=== PATIENT | female | born 1995 | race Hispanic/Latino ===

== ENCOUNTER 2020-02-23 08:06 | Outpatient (CLI) | payer OTHER, SELFPAY ==
[2020-02-23 09:48] LABS: Glucose 1 Hour PP 50gm Dose 104 mg/dL
[2020-02-23 09:50] LABS: Hematocrit 33.8 % (37.0-47.0); Hemoglobin 11.2 g/dL (12.0-15.0)
[2020-02-23 10:30] LABS: HIV 1/2 Ab P24 Ag Result Negative (Negative)
== END 2020-02-23 08:07 | disposition home or self-care (01) ==
PROVIDERS: PCP Family Medicine; Visit Provider Obstetrics & Gynecology
DX: Z34.92 Encounter for supervision of normal pregnancy, unspecified, second trimester (principal)
CPT/HCPCS: 36415; 82947; 85014; 85018; 86703; G0432

== ENCOUNTER 2020-05-02 10:17 | Outpatient (CLI) | payer OTHER, SELFPAY ==
--- NOTE | 2020-05-02 11:29 | PC.NURSE ---
Dr. Chowdary returned call to office and informed ROM plus was negative, FHT's reactive. Discussed contractions that pt feels as mild cramping and rates a 2 out of 10. Tried to do SVE, but unable to reach cervix. Fetus is vertex and -1 station. Tried reaching behind head and sweeping finger to find cervix, but unable to reach due to pt discomfort. No leakage of fluid or vaginal spotting noted. OK to discharge to home. To have pt come back if contractions increase in intensity or any leakage of fluid.
[2020-05-02 11:31] VITALS: BP 105/67; PULSE 85
--- NOTE | 2020-05-02 11:39 | PC.NURSE ---
Called Dr. Chowdary back and informed him pt had a late decel followed by an accel and moderate variability. To watch pt for another 30 minutes and if tracing is OK, may discharge to home with labor precautions. OK for pt to have clear liquids.
--- NOTE | 2020-05-02 12:01 | PM.OBTRLD ---
OB - Triage/Final Diagnosis Visit Information Reason for evaluation: threatened labor Evaluation Vital signs: Vital Signs - 24 hr 05/02/20 11:31 Pulse Rate 85 Blood Pressure [Left Arm] 105/67
== END 2020-05-02 12:30 | disposition home or self-care (01) ==
LOC: ANHOBOP 11:37 → ANHOBPP 11:38
PROVIDERS: PCP Family Medicine; Visit Provider Obstetrics & Gynecology
DX: O41.8X90 Other specified disorders of amniotic fluid and membranes, unspecified trimester, not applicable or unspecified (principal)
CPT/HCPCS: 59025; 84112; 99199

== ENCOUNTER 2020-05-05 10:06 | Outpatient (CLI) | payer OTHER, SELFPAY ==
[2020-05-05 10:22] LABS: Hematocrit 40.1 % (37.0-47.0); Hemoglobin 13.3 g/dL (12.0-15.0); Mean Corpuscular HGB Conc 33.2 g/dl (32-36); Mean Corpuscular Hemoglobin 29.4 pg (26-34); Mean Corpuscular Volume 88.5 fl (80-100); Platelet Count Result 206 k/mm3 (150-375); Red Blood Count 4.53 M/mm3 (4.2-5.4); Red Cell Distribution Width 13.8 % (11.5-14.5); White Blood Count 9.7 K/mm3 (4.5-10.0)
[2020-05-07 07:07] LABS: Rapid Plasma Reagin Non-Reactive (NonReactive)
== END 2020-05-05 10:07 | disposition home or self-care (01) ==
LOC: ANHLAB 10:08
PROVIDERS: PCP Family Medicine; Visit Provider Obstetrics & Gynecology
DX: Z01.818 Encounter for other preprocedural examination (principal)
CPT/HCPCS: 36415; 85027; 86592; 86850; 86900; 86901

== ENCOUNTER 2020-05-07 05:03 | Inpatient (IN) | payer OTHER, MEDICAID, SELFPAY ==
--- NOTE | 2020-04-20 12:59 | PC.NURSE ---
VERIFIED WITH OR SCHEDULE AND PATIENT--C/S ON 05/07/20 AT 0730 PATIENT GIVEN REQUISITION FOR LAB DRAW ON 05/05/20
[2020-05-07] VITALS (72 sets, daily range): BP systolic 90–123; BP diastolic 51–79; PULSE 60–158; RESP 16; TEMP 36.1–37.8; O2SAT 97–100; BMI 28.9
[2020-05-07] MEDS: LACTATED RINGERS 1,000 ML 125 ML IV CONT ×2 (05:52→07:00)
--- NOTE | 2020-05-07 06:17 | LDADM ---
This patient, Bessy Orlando, was admitted to Labor/Delivery/Recovery 120 on 05/07/20 at 05:03. Plans for labor, pain management and were discussed with patient. Patient/family oriented to hospital policies and general routines including ID bracelet, bed and alarms, visiting hours, pain management, procedures, bathroom and other care routines, personal items, smoking policy, room service/diet and guest tray routines, security routines, and visiting hours. Patient/Family are encouraged to report perceived risks to care and to ask questions if they do not understand what they are told or what they should do. See OBIX for further documentation.
--- NOTE | 2020-05-07 07:09 | WPDANESEPPF ---
Anes - Initial Pre Proc Eval Procedure: Operation Date: 05/07/20 07:30 Proposed Procedures p Primary Section - Milagro Heredia MD Date/Time: 05/07/20 07:09 Surgeon: Milagro Heredia MD Pre Op Diagnosis: Patient Data Age: 25 Gender: F Height: 5 ft 3 in Weight: 74 kg Last Vital Signs Pulse 83 05/07/20 06:31 BP 108/65 05/07/20 06:31 Allergies Allergy/AdvReac Type Severity Reaction Status Date / Time No Known Allergies Allergy Mild Verified 04/20/20 12:38 Home Medications Medication Instructions Recorded Confirmed Type PNV cmb#95-ferrous fumarate-FA 1 tablet PO DAILY 04/20/20 05/02/20 History [] Patient hx anesthesia problems: none Family hx anesthesia problems: none PMFSH Family History Family History (Updated 04/20/20 @ 12:39 by Romel Hurtado RN) Other Unknown family medical history Social History Social History Smoking status: Never smoker Substance use: never Spiritual care concerns: No Anes - Eval Final PreProcedure Day of Procedure 05/07/20 07:09 Patient weight: overweight Heart: regular rate and rhythm Lungs: clear to auscultation Airway: Mallampati scale class II Neurological: alert and oriented Last oral intake: >/= 8 hours ASA classification: II Emergent: no Anesthetic plan: proceed Anesthesia type and monitoring: regional spinal and standard monitoring Informed Consent: The patient's anesthetic plan and its attendant risks and benefits were discussed with the patient/family/POA. Questions were solicited and answers provided to the satisfaction of the patient/family/POA.
--- NOTE | 2020-05-07 07:12 | PM.IMHP ---
H&P: HPI History of Present Illness Chief complaint: Narrative: Bessy Orlando is a 25 yo @ 39.4wks who presented to L&D for scheduled elective C/S. Pt has requested primary c/s. She reports a traumatic first and has desires a primary c/s since 14wks. She denies any issues today. Good movement, does report contractions. No leakage of fluid or bleeding. No issues have affected her . Review of Systems Constitutional: Constitutional: Denies body ache(s) and Denies chills Eyes: Eyes: Denies blurry vision Cardiovascular: Cardiovascular: Denies chest pain and Denies palpitations Respiratory: Respiratory: Denies cough and Denies dyspnea Gastrointestinal: Gastrointestinal: Denies abdominal pain, Denies nausea and Denies vomiting Genitourinary: Genitourinary: Denies vaginal discharge Neurologic: Denies headache(s) Psychiatric: Psychiatric: Denies anxiety, Denies confusion and Denies depression [facility] Family History Family History Other Unknown family medical history Social History Social History Smoking status: Never smoker Substance use: never Spiritual care concerns: No Meds Home Medications and Allergies Home Medications Medication Instructions Recorded Confirmed Type PNV cmb#95-ferrous fumarate-FA 1 tablet PO DAILY 04/20/20 05/02/20 History [] Allergies Allergy/AdvReac Type Severity Reaction Status Date / Time No Known Allergies Allergy Mild Verified 04/20/20 12:38 Vital Signs Vital Signs - 24 hr 05/07/20 05:23 05/07/20 05:46 05/07/20 06:01 Pulse Rate 86 83 89 Blood Pressure 117/74 123/75 115/71 05/07/20 06:16 05/07/20 06:31 Pulse Rate 88 83 Blood Pressure 111/76 108/65 Exam Const: General: comfortable and no acute distress Resp: Effort & Inspection: normal respiratory effort Cardio: Rate: regular rate GI: Inspection: non-distended GI Palp: Yes Soft to palpation and No Tenderness to palpation present (GI) : Other: FHT's: 130's/ mod larry/ + accels/ no decels - cat 1 TOCO: ctx's q 5min Vertex on bedside US Cervix: posterior, 80% effaced, 0 station Skin: General skin exam: normal color Neuro: Speech: normal speech Extrem: General: normal to inspection Psych: Affect: normal affect Assessment and Plan Assessment and plan (1) 39 weeks gestation of : Code(s): Z3A.39 - 39 weeks gestation of Status: Acute Additional Plan - Pt desires to proceed with elective primary section - Pt has been extensively counseled throughout the . She was once again counseled with nursing staff present. She is aware of the risk of pain, bleeding, infection, injury to nearby structures (uterus, ovaries, baby, blood vessels, bladder, intestines, etc), and the need for repeat sections in the future.
[2020-05-07] MEDS: ceFAZolin 2 GM/D5W 50 ML 2 GM/50 ML BAG IVPB (07:27)
--- NOTE | 2020-05-07 08:26 | P.PCNOB_ITS ---
OB - Delivery Note Procedure Delivery date: 05/07/20 Procedure: Procedures Operation Date: 05/07/20 07:30 <No data on this case meets the specified criteria> Route of delivery: (elective) Specimen: No Estimated blood loss (mL): 610 Anesthesia type: Spinal Disposition: PACU Narrative: Patient desired to have her see with elective primary section after extensive counseling with the nurse present. She was taken operating room where spinal anesthesia was found to be adequate. She was then prepped and draped in the usual sterile fashion. She received 2 g Ancef and time-out was performed. A Pfannenstiel skin incision was made and carried down to the underlying fascia using Bovie cautery. The fascia was nicked on either side the midline and extended laterally and superiorly. The rectus fascia was elevated with Carito clamps and the underlying rectus muscles were from the rectus fascia. This procedure was performed superiorly and inferiorly without complications. The rectus muscles were then in the midline and the peritoneum was entered bluntly. Once adequate exposure was obtained and Saleem retractor was then placed within the abdomen. A bladder flap was created. A low transverse incision was made on the uterus. The head was brought to the hysterotomy and delivered without complications. With gentle pressure, the shoulders and body were delivered without complications. The infant had spontaneous cry and the mouth and nose were bulb suctioned. The umbilical cord was clamped and cut and the was handed off to the waiting pediatric nurse. A segment of the cord was collected for cord gases and the remaining cord blood was collected for typing. With gentle traction and Pitocin running the placenta delivered without complications. Using a clean lap all clots and debris were removed from the uterus. The hysterotomy was then repaired in a running fashion using 0 Vicryl. A 2nd layer imbricating suture using 0 Vicryl was placed and good hemostasis was noted. The bilateral adnexa were examined and found to be within normal limits. The pelvis was cleared of all clots and debris. The hysterotomy was once again inspected and found to be hemostatic. The Saleem retractor was removed from the abdomen. The peritoneum rectus muscles and fascia were examined and found to be hemostatic. The rectus fascia was then reapproximated in a running fashion using 0 Vicryl. The subcutaneous tissue was irrigated and made hemostatic with Bovie cautery. The skin was reapproximated using 4 Monocryl in a running subcuticular fashion and a clean dressing was placed over the incision. Sponge, lap, needle, and instrument counts were correct x2 at the end the procedure. Patient tolerated the procedure well was taken recovery in a stable condition. [facility] Date of : 05/07/20 Time of : 07:53 Weeks of gestation at delivery: 39 gender: Female Weight (pounds): 6 Weight (ounces): 13 presentation: vertex position: Left Occiput Anterior Placenta delivery description: Expressed cord vessel description: 3 Vessels score one minute: 8 score five minutes: 9
[2020-05-07] MEDS: OXYTOCIN 30 UNITS/NS 500 ML 30 UNITS/500 ML BAG 125 UNITS IV CONT (09:23)
[2020-05-07] MEDS: KETOROLAC 30 MG/ML VIAL (*BKC) IV PUSH ×3 (10:08→22:47)
--- NOTE | 2020-05-07 13:09 | PC.NURSE ---
Patient transferred to post room #288 via [id number]. Support person present. Oriented to unit, room, information board, rooming in, admission packet and security measures. Patient verbalizes understanding.
[2020-05-07] MEDS: DEXTROSE 5%/0.45% SOD CHL 1,000 ML 125 ML IV CONT (13:40)
[2020-05-07] MEDS: KCL 20 MEQ/D5/0.45% SOD CHL 1,000 ML 125 ML IV CONT (21:37)
[2020-05-07] MEDS: ACETAMINOPHEN 325 MG TABLET 650 MG PO (21:41)
--- NOTE | 2020-05-07 22:21 | PC.NURSE ---
05/07/2020 at 1853 Notes entered at this time under Jie Bermudez RN should be recorded as Aysha Gomez RN.
[2020-05-08 03:51] VITALS: BP 99/62; PULSE 91; RESP 16; TEMP 36.5; O2SAT 98
[2020-05-08 04:47] LABS: Basophils Percent Auto 0.2 % (0.2-1.2); Eosinophils Absolute Auto 0.1 K/mm3 (0-0.3); Eosinophils Percent Auto 0.5 % (0-4.4); Hematocrit 27.9 % (37.0-47.0); Hemoglobin 9.4 g/dL (12.0-15.0); Immature Granulocyte Absolute 0.05 K/mm3 (0.00-0.031); Immature Granulocyte Percent A 0.5 % (0-0.5); Lymphocytes Absolute Auto 1.57 K/mm3 (0.9-3.2); Lymphocytes Percent Auto 16.6 % (18.3-44.2); Mean Corpuscular HGB Conc 33.7 g/dl (32-36); Mean Corpuscular Hemoglobin 29.8 pg (26-34); Mean Corpuscular Volume 88.6 fl (80-100); Mean Platelet Volume 9.5 fl (7.4-10.4); Monocytes Absolute Auto 0.6 K/mm3 (0.1-0.6); Monocytes Percent Auto 6.2 % (2.6-8.5); Neutrophils Absolute Auto 7.2 K/mm3 (1.3-6.7); Platelet Count Result 146 k/mm3 (150-375); Red Blood Count 3.15 M/mm3 (4.2-5.4); Red Cell Distribution Width 13.9 % (11.5-14.5); White Blood Count 9.4 K/mm3 (4.5-10.0)
[2020-05-08] MEDS: IBUPROFEN 600 MG TABLET PO ×3 (06:27→19:46)
--- NOTE | 2020-05-08 07:06 | WPDANLDPN2 ---
Anes-Prog Note L&D Date/Time: 05/08/20 07:06 Comfortable throughout: section Neuraxial method: spinal Epidural/Spinal procedure site: clean & non-tender Neuro status: Neuro function grossly intact. Cardiovascular status: normal Respiratory status: normal Airway patency: baseline Mental status: baseline Post-Op hydration status: normal Vital Signs: Last Vital Signs Temp 36.5 C 05/08/20 03:51 Pulse 91 05/08/20 03:51 Resp 16 05/08/20 03:51 BP 99/62 L 05/08/20 03:51 Pulse Ox 98 05/08/20 03:51 I/O: Intake & Output 05/07/20 05/07/20 05/08/20 15:59 23:59 07:59 Intake Total 1840 801 Output Total 210 2601 950 Balance 1630 -1800 -950 Post-procedural complaints: none Patient feedback: Patient satisfied with anesthetic care.
--- NOTE | 2020-05-08 07:06 | WPDANLDNPN2 ---
Anes-Prog Note L&D-Neuraxial Date/Time: 05/08/20 07:06 Neuraxial medications: intrathecal PF morphine Opiod-related complaints: none Patient feedback: Patient satisfied with post-operative pain management.
[2020-05-08 08:20] VITALS: BP 90/57; PULSE 83; RESP 18; TEMP 36.6; O2SAT 98
[2020-05-08] MEDS: POLYSACCHARIDE IRON COMPLEX 150 MG CAPSULE PO ×2 (09:51→16:25)
[2020-05-08] MEDS: MULTIVIT/MIN/PREN/FOL AC/IRON TABLET 1 TAB PO (09:51)
[2020-05-08] MEDS: DOCUSATE SODIUM 100 MG CAPSULE PO ×2 (09:51→16:25)
[2020-05-08] MEDS: TETANUS,DIPHTHERIA,AC PERTUSSIS ADULT (0.5 ML) BOOSTRIX IM (12:07)
--- NOTE | 2020-05-08 14:01 | P.PNOB_ITS ---
OB - PN: Subj Subjective Date/time seen: 05/08/20 14:01 Bessy is a 25yo now P2002 s/p pLTCS 2/2 maternal request, POD #1 Today, Bessy is doing well. She reports her pain is controlled with the pain meds. She is tolerating regular diet w/o N/V. She is passing gas and voiding spontaneously. Her vaginal bleeding is very light. She is ambulating w/o s/sx of anemia. She is bottle feeding. She would like to go home tomorrow. OB - PN: Obj Data Labs CBC & Chem 7: 05/08/20 04:03 Labs: Laboratory Results - last 24 hr 05/08/20 04:03 WBC 9.4 RBC 3.15 L Hgb 9.4 L D Hct 27.9 L MCV 88.6 MCH 29.8 MCHC 33.7 RDW 13.9 Plt Count 146 L MPV 9.5 Immature Gran % (Auto) 0.5 Neut % (Auto) 76.0 H Lymph % (Auto) 16.6 L [place] % (Auto) 6.2 Eos % (Auto) 0.5 Baso % (Auto) 0.2 Lymph # (Auto) 1.57 [place] # (Auto) 0.6 Eos # (Auto) 0.1 Baso # (Auto) 0.0 Abs Immat Gran (auto) 0.05 H Absolute Neuts (auto) 7.2 H Absolute Nucleated RBC 0.0 Nucleated RBC % 0.0 OB - PN A/P Assessment and Plan (1) S/P section: Code(s): Z98.891 - History of uterine scar from previous surgery Status: Acute Plan day: 1 Plan: routine care and discharge home (tomorrow) Time Spent With Patient Time: Total time spent is greater than 50% in coordination of care (as documented) at patient's floor/unit and/or counseling patient: Review of Systems Constitutional: Constitutional: Denies body ache(s) and Denies chills Cardiovascular: Cardiovascular: Denies rapid heart rate Respiratory: Respiratory: Denies cough and Denies dyspnea Gastrointestinal: Gastrointestinal: Reports abdominal pain, Denies nausea and Denies vomiting Genitourinary: Genitourinary: Reports pelvic pain Neurologic: Denies headache(s) Exam Const: General: comfortable, no acute distress, alert and awake Orien tation/consciousness: patient oriented x3 Resp: Effort & Inspection: normal respiratory effort Auscultation: clear to auscultation bilaterally Cardio: Rate: regular rate GI: Auscultation: normal bowel sounds Other: non-distended, soft, pfannenstiel incision c/d/i covered with clean dressing : Other: fundus firm at umbilicus, normal lochia Psych: Appearance: grossly normal Affect: normal affect Attitude: cooperative Judgement: Good judgement present (Psych)
[2020-05-08 20:00] VITALS: BP 112/65; PULSE 100; RESP 20; TEMP 36.6; O2SAT 99
[2020-05-09] MEDS: IBUPROFEN 600 MG TABLET PO ×2 (01:54→08:23)
[2020-05-09 08:05] VITALS: BP 104/56; PULSE 80; RESP 18; TEMP 37.1; O2SAT 99
[2020-05-09] MEDS: POLYSACCHARIDE IRON COMPLEX 150 MG CAPSULE PO (08:23)
[2020-05-09] MEDS: MULTIVIT/MIN/PREN/FOL AC/IRON TABLET 1 TAB PO (08:23)
[2020-05-09] MEDS: DOCUSATE SODIUM 100 MG CAPSULE PO (08:23)
[2020-05-10 11:15] VITALS: BP 99/62; PULSE 89; RESP 20; TEMP 36.8; O2SAT 100
--- NOTE | 2020-05-28 11:03 | PM.OBDSVD ---
DS: Admitting Diagnosis Admitting Diagnosis Admitting Diagnosis: Encounter for supervision of normal , unspecified, third trimester DS: Discharge Diagnosis Discharge Diagnosis (1) S/P section: Code(s): Z98.891 - History of uterine scar from previous surgery Status: Acute OB - DS: Summary OB Procedures : None OB Procedures Intrapartum: (primary, elective (maternal request)) low cervical, transverse OB Procedures: : None Peripartum Data Delivery Method: Section Procedures: Procedures Operation Date: 05/07/20 07:30 Actual Procedures Side Surgeon p Primary Section Milagro Heredia MD complications: none [place] 1: Gender: Female Disposition of : home Status at Discharge Functional status at discharge: independent ambulation Overall status at discharge: patient is back to baseline Time Spent with Patient Time attestation: Total time spent providing and/or coordinating discharge services: Exam Const: General: comfortable, no acute distress, alert and awake Resp: Effort & Inspection: normal respiratory effort Auscultation: clear to auscultation bilaterally Cardio: Rate: regular rate GI: Inspection: non-distended GI Palp: Yes Soft to palpation and No Tenderness to palpation present (GI) Auscultation: normal bowel sounds Other: pfannenstiel incision covered w/ c/d/i dressing : Other: normal lochia Psych: Appearance: grossly normal Affect: normal affect Attitude: cooperative Discharge Plan Discharge Attending physician on discharge: Milagro Heredia Consulting providers: Kamari Frank Discharging Clinician: Milagro Heredia Anticipated Discharge Date/Time: 05/09/20 15:00 Patient Disposition: Home, Self-Care Activity: pelvic rest and other - see discharge instructions Diet: as tolerated Wound Care Instructions: incision open to air Discharge Instructions: No heavy lifting over 10 lbs for 6 weeks. Remove dressing after 3 days and keep open to air (clean and dry)-- NO additional creams/alcohol/peroxide should be applied to the incision unless directed to by your physician. Education: Mom and Baby Guide Given to: Mother Follow-Up: Call your delivering provider's office for an appointment to be seen in: 4 Weeks Mom and baby should come to the [facility] for the follow-up appointment. Appointment Date/Time: May 10, 2020 at 11:00 am What to expect at your follow-up visit: Physical Assessment Call [phone] if you are unable to keep your appointment time. BREAST CARE: 1. Wear a snug supportive bra. 2. For engorgement discomfort: Bottle Feeding: A. May apply ice packs ABDOMINAL INCISION: 1. Allow incision to air dry 2. Do NOT use lotions for powders on your incision 3. When showering, allow soap and water to run over the incision, but do not wash incision PERINEAL CARE: 1. Until bleeding stops, use your jorgito bottle after urinating 2. Change your pad frequently throughout the day 3. No tub baths until seen by your physician - You may shower ACTIVITY: 1. Rest as much as possible. 2. Do not exercise or lift anything heavier than your baby (such as laundry or other children.) 3. Avoid stairs or driving as much as possible. 4. Do not put anything into the vagina. No douching, tampons, or sexual activity until seen by physician. NOTIFY PHYSICIAN IF YOU HAVE ANY QUESTIONS OR IF ANY OF THE FOLLOWING SYMPTOMS OCCUR: 1. If your incision becomes red, swollen, or more painful than what you have experienced in the hospital. 2. If your vaginal bleeding becomes foul smelling. 3. If your vaginal bleeding becomes more heavy than a period or if your bleeding changes from pink to bright red. However, you may pass an occasional walnut-sized clot once or twice for the first week . 4. If you experience a sharp, shooting pain in you calves.
== END 2020-05-09 11:44 | disposition home or self-care (01) | DRG 788 ==
LOC: ANHLDR 05:06 → ANHOB2 10:52
PROVIDERS: Admitting Provider Obstetrics & Gynecology; PCP Family Medicine; Visit Provider Obstetrics & Gynecology
PROC: 10D00Z1 Extraction of Products of Conception, Low, Open Approach (ICD-10-PCS; CPT 59514; principal; 2020-05-07 07:30)
DX: O98.52 Other viral diseases complicating childbirth (principal); Z37.0 Single live birth; Z3A.39 39 weeks gestation of pregnancy; B00.9 Herpesviral infection, unspecified
CPT/HCPCS: 36415; 85025; 90715; A9270; J0131; J0690; J1885; J2274; J2405; J2590; J3480; J7120

== ENCOUNTER 2022-03-30 08:13 | Emergency (ER) | payer OTHER, SELFPAY ==
[2022-03-30 08:25] VITALS: BP 124/83; PULSE 73; RESP 16; TEMP 36.8; O2SAT 99
--- NOTE | 2022-03-30 08:55 | ED.ABDPAIN ---
HPI - Abdominal Pain General Chief Complaint: Abdominal Pain Stated Complaint: left side abd pain Time Seen by Provider: 03/30/22 08:30 Source: patient Mode of arrival: ambulatory Limitations: no limitations History of Present Illness HPI narrative: 27-year-old female presents with complaint of left lower quadrant pain since this morning. Patient reports that she is concerned for twisted ovary . States that last night she had intercourse with her fianc? and had bright red vaginal bleeding. She states this morning she had brown vaginal bleeding. Vaginal bleeding has now resolved. Reports that she has left lower abdominal pain. She has no history of ovarian cyst. Had a approximately 18 months ago. Reports that she has heard of twisted ovaries and is concerned that she has this. Denies nausea vomiting diarrhea. Last menstrual period was March 02. All systems reviewed and negative except as noted above. Related Data Allergies Allergy/AdvReac Type Severity Reaction Status Date / Time No Known Allergies Allergy Mild Verified 03/30/22 08:53 Review of Systems Review of Systems: CONSTITUTIONAL: Denies fever, chills, or sweats. EYES: Denies visual changes, redness, or discharge. ENT: Denies rhinorrhea, congestion, sore throat, or otalgia. CARDIOVASCULAR: Denies chest pain, palpitations, or edema. RESPIRATORY: Denies cough or dyspnea. GASTROINTESTINAL: Denies abdominal pain, nausea, vomiting, or diarrhea. GENITOURINARY: Reports vaginal bleeding last night and left lower quadrant pain. SKIN: Denies rash or itching. MUSCULOSKELETAL: Denies back pain, joint pain, or myalgia. NEUROLOGIC: Denies headache, numbness, or weakness. PSYCHIATRIC: Denies anxiety or depression. All other systems reviewed are negative, except as documented in HPI. PMFSH Family History Family History Other Unknown family medical history Social History Social History Smoking status: Never smoker Substance use: never Spiritual care concerns: No Comments At time of signature, agree with nursing past medical, surgical, social and family history. There is no relevant family history pertinent to the presenting complaint. Exam Narrative: GENERAL: This is a well-nourished, well-developed patient, in no apparent distress. HEAD: normocephalic, atraumatic. EYES: PERRL. Sclera clear/white. Vision is grossly intact. EARS: External ears normal NOSE: External nose NECK: Neck supple, non-tender without lymphadenopathy, masses or thyromegaly. CARDIOVASCULAR: Regular rate and rhythm without murmurs, gallops, or rubs. RESPIRATORY: Clear to auscultation. Breath sounds equal bilaterally. No wheezes, rales, or rhonchi. GASTROINTESTINAL: Abdomen soft, nondistended. Bowel sounds are active. Tenderness to right upper and left upper quadrant. Patient describing as pressure . SKIN: warm, Dry, intact with no suspicious lesions or rash, good texture and turgor. NEURO: awake, alert, and oriented to person, place and time. There were no obvious focal neurologic abnormalities. EXTREMITIES: Normal range of motion to all extremities. BACK: Nontender without deformity. No CVA tenderness. Course Course Level of Care: Express Care Visit Vital Signs Vital signs: Vital Signs Temperature 36.8 C 03/30/22 08:25 Pulse Rate 73 03/30/22 08:25 Respiratory Rate 16 03/30/22 08:25 Blood Pressure 124/83 03/30/22 08:25 Pulse Oximetry 99 03/30/22 08:25 Oxygen Delivery Room Air 03/30/22 08:25 Temperature 36.8 C 03/30/22 08:25 Pulse Rate 73 03/30/22 08:25 Respiratory Rate 16 03/30/22 08:25 Blood Pressure 124/83 03/30/22 08:25 Pulse Oximetry 99 03/30/22 08:25 Oxygen Delivery Room Air 03/30/22 08:25 Reviewed Transfer Transfered to: [facility] Transportation: Other (Private car) Transfer rationale: Patient is not having
== END 2022-03-30 08:55 | disposition short-term general hospital (02) ==
PROVIDERS: Emergency Provider Nurse Practitioner Family
DX: R10.32 Left lower quadrant pain (principal)
CPT/HCPCS: 81003; 81025; 99212; G0463

== ENCOUNTER 2022-03-30 09:06 | Emergency (ER) | payer OTHER, SELFPAY ==
--- NOTE | ~2022-03-30 | US_ITS ---
EXAMINATION: US pelvic complete w TV DATE: 03/30/2022 10:31 INDICATION: Left lower quadrant pain TECHNIQUE: Multiple transabdominal and endovaginal sonographic images of the pelvis were obtained. COMPARISON: None. FINDINGS: The uterus measures 7.5 x 4.5 x 5.8 cm. The endometrial complex measures 11 mm. The right o vary measures 2.5 x 1.4 x 1.8 cm. The left ovary measures 2.4 x 1.4 x 1.8 cm. There is normal vascula r flow in the ovaries. There is no free fluid in the pelvis. IMPRESSION: 1. No sonographic correlate for the patient's symptoms. Reviewed, dictated and finalized at location A.
[2022-03-30 09:10] VITALS: BP 127/82; PULSE 81; RESP 16; TEMP 36.3; O2SAT 100
--- NOTE | 2022-03-30 09:43 | ED.ABDPAIN ---
HPI - Abdominal Pain General Chief Complaint: Abdominal Pain Stated Complaint: abd pain, sent from urgent care Time Seen by Provider: 03/30/22 09:34 Source: patient Mode of arrival: ambulatory Limitations: no limitations History of Present Illness HPI narrative: 27-year-old female presents today with complaints of left lower quadrant pain that started this morning. Patient had abnormal vaginal bleeding last night which is currently ceased. Patient states she was having sexual intercourse when after she noted what she thought was her menstrual cycle. But when she woke up later the blood had turned around and then this morning the bleeding has ceased. Patient with left lower quadrant pain that started this morning seen at the urgent care. test was negative and they had concerns for ovarian torsion so they sent patient to the ER. Patient currently rating pain a 2 out of 10. Related Data Allergies Allergy/AdvReac Type Severity Reaction Status Date / Time No Known Allergies Allergy Mild Verified 03/30/22 08:53 Review of Systems Review of Systems: CONSTITUTIONAL: Denies fever, chills, or sweats. EYES: Denies visual changes, redness, or discharge. ENT: Denies rhinorrhea, congestion, sore throat, or otalgia. CARDIOVASCULAR: Denies chest pain, palpitations, or edema. RESPIRATORY: Denies cough or dyspnea. GASTROINTESTINAL: Left lower quadrant pain started this morning. Denies nausea, vomiting, or diarrhea. GENITOURINARY: Denies dysuria or hematuria. SKIN: Denies rash or itching. MUSCULOSKELETAL: Denies back pain, joint pain, or myalgia. NEUROLOGIC: Denies headache, numbness, dizziness, or weakness. PSYCHIATRIC: Denies anxiety or depression. [facility] Family History Family History Other Unknown family medical history Social History Social History Smoking status: Never smoker Substance use: never Spiritual care concerns: No Exam Narrative: GENERAL: Well-appearing, well-nourished, and in no acute distress. HEAD: Normocephalic, atraumatic. EYES: PERRLA and EOMI. ENT: Nares clear, no rhinorrhea or epistaxis. Mucous membranes moist. Oropharynx without tonsillar hypertrophy exudate or other lesions. Bilateral TMs pearly srivastava nonbulging NECK: Supple. No adenopathy or masses. No carotid bruits or JVD CHEST: Clear to auscultation. No respiratory distress. No wheezes rales or rhonchi HEART: Regular rate and rhythm. No murmur heard. Normal peripheral pulses. ABDOMEN: Left lower quadrant tenderness upon palpation. Soft nondistended, normal active bowel sounds. EXTREMITIES: Normal range of motion. No edema. SKIN: Warm, dry, no rash. NEURO: No focal deficits. Alert and oriented x3. PSYCH: Normal mood and affect. Course Course Emergency Course: Labs and test results reviewed with marco. Patient will be discharged home plan follow up with OB/primary with continued concerns. Vital Signs Vital signs: Vital Signs Temperature 36.3 C L 03/30/22 09:10 Pulse Rate 81 03/30/22 09:10 Respiratory Rate 16 03/30/22 09:10 Blood Pressure 127/82 03/30/22 09:10 Pulse Oximetry 100 03/30/22 09:10 Oxygen Delivery Room Air 03/30/22 09:10 Temperature 36.3 C L 03/30/22 09:10 Pulse Rate 81 03/30/22 09:10 Respiratory Rate 16 03/30/22 09:10 Blood Pressure 127/82 03/30/22 09:10 Pulse Oximetry 100 03/30/22 09:10 Oxygen Delivery Room Air 03/30/22 09:10 MDM - Abdominal Pain MDM Narrative Medical decision making narrative: 27-year-old female HPI as noted. Patient with negative test at urgent care sent here for rule out torsion due to left lower quadrant pain and bleeding with sexual intercourse last night. Ultrasound shows no findings to correlate with symptoms. Patient currently rating pain 2 out of a 10. Suspect constipation possible less suspicious for diverticulitis du
[2022-03-30 10:20] LABS: Basophils Percent Auto 0.5 % (0.2-1.2); Eosinophils Percent Auto 0.2 % (0-4.4); Hematocrit 39.6 % (37.0-47.0); Hemoglobin 13.2 g/dL (12.0-15.0); Immature Granulocyte Absolute 0.03 K/mm3 (0.00-0.031); Immature Granulocyte Percent A 0.3 % (0-0.5); Lymphocytes Absolute Auto 1.05 K/mm3 (0.9-3.2); Lymphocytes Percent Auto 11.9 % (18.3-44.2); Mean Corpuscular HGB Conc 33.3 g/dl (32-36); Mean Platelet Volume 9.1 fl (7.4-10.4); Monocytes Absolute Auto 0.4 K/mm3 (0.1-0.6); Monocytes Percent Auto 4.2 % (2.6-8.5); Neutrophils Absolute Auto 7.4 K/mm3 (1.3-6.7); Neutrophils Percent Auto 82.9 % (45.5-73.1); Platelet Count Result 226 k/mm3 (150-375); Red Blood Count 4.55 M/mm3 (4.2-5.4); Red Cell Distribution Width 13.6 % (11.5-14.5); White Blood Count 8.9 K/mm3 (4.5-10.0)
[2022-03-30 10:30] LABS: Alanine Aminotransferase 10 U/L (6-35); Albumin Level 4.8 g/dL (3.5-5.1); Alkaline Phosphatase 82 U/L (38-126); Anion Gap 8 mmol/L (8-16); Aspartate Amino Transferase 17 U/L (14-36); Bilirubin,Total 0.4 mg/dL (0.2-1.3); Blood Urea Nitrogen 16 mg/dL (7-17); Carbon Dioxide 21 mmol/L (22-30); Chloride 109 mmol/L (98-107); Estimated CRCL calculation 82 ml/min; Estimated Glomerular Filt Rate > 60; Glucose 99 mg/dL (65-110); Potassium 3.7 mmol/L (3.4-5.0); Sodium 138 mmol/L (137-145)
[2022-03-30 11:45] VITALS: BP 120/82; PULSE 85; RESP 18; O2SAT 98
== END 2022-03-30 11:46 | disposition home or self-care (01) ==
PROVIDERS: Emergency Provider Nurse Practitioner Family; PCP Family Medicine
DX: R10.32 Left lower quadrant pain (principal)
CPT/HCPCS: 36415; 76830; 76856; 80053; 81003; 81025; 85025; 99284

== ENCOUNTER 2022-06-09 03:01 | Emergency (ER) | payer OTHER, SELFPAY ==
--- NOTE | 2022-06-09 03:11 | ED.NAVMDI ---
HPI - Nausea/Vomiting/Diarrhea General Chief complaint: Nausea/Vomiting/Diarrhea Stated complaint: n/v, positive preg test last week, weak Time Seen by Provider: 06/09/22 03:05 History of Present Illness HPI Narrative: 27-year-old female presents emergency room secondary to nausea vomiting and feeling like she is dehydrated. She did home test which came back positive about a week ago. She has an appointment to be seen by the [facility] next month. She is a 3 para 2 is a 9-year-old and a 1-year-old. Based upon her last menstrual period of May 02 makes her approximately 5 weeks 3 days gestation at this time. She denies any vaginal discharge or bleeding. No urinary complaints noted. She did have some nausea vomiting associated with her other pregnancies. She states she also has a headache. However is not uncommon for her to have headaches. She not take anything for the headache. No diarrhea. No one else at home has been sick. Related Data Allergies Allergy/AdvReac Type Severity Reaction Status Date / Time No Known Allergies Allergy Mild Verified 04/17/22 14:29 Review of Systems Review of Systems: CONSTITUTIONAL: Denies fever, chills, or sweats. EYES: Denies visual changes, redness, or discharge. ENT: Denies rhinorrhea, congestion, sore throat, or otalgia. CARDIOVASCULAR: Denies chest pain, palpitations, or edema. RESPIRATORY: Denies cough or dyspnea. GASTROINTESTINAL: Nausea and vomiting with no associated diarrhea or abdominal pain GENITOURINARY: Denies dysuria or hematuria. SKIN: Denies rash or itching. MUSCULOSKELETAL: Denies back pain, joint pain, or myalgia. NEUROLOGIC: Mild headache but no numbness or weakness PSYCHIATRIC: Denies anxiety or depression. 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 Head Normocephalic and atraumatic. EYES: PERRLA/EOMI, conjunctivae clear. NOSE: Normal with no drainage EARS:TMS clear with Peña, with good light reflex. THROAT: Pharynx clear, no exudate. NECK: Supple. No adenopathy, no masses. RESPIRATORY: Airway patent, respirations nonlabored. Clear to auscultation bilaterally, no rales, rhonchi, wheezing. CARDIOVASCULAR: Regular rate and rhythm without murmurs, rubs, or gallops. ABDOMINAL: Soft, nontender, nondistended, no hepatosplenomegaly Musculoskeletal: Moves all extremities. Strength/ROM intact, No edema, No calf tenderness. NEURO: Alert. Cranial nerves II through XII intact. Normal gait. Good coordination. Nonfocal examination. SKIN:: Warm, dry. Normal Color PSYCHIATRIC: Normal affect/mood, normal interaction Course Vital Signs Vital signs: Vital Signs Temperature 98.9 F 06/09/22 03:16 Pulse Rate 82 06/09/22 03:16 Respiratory Rate 18 06/09/22 03:16 Blood Pressure 117/82 06/09/22 03:16 Pulse Oximetry 100 06/09/22 03:16 Oxygen Delivery Room Air 06/09/22 03:16 Temperature 98.9 F 06/09/22 03:16 Pulse Rate 82 06/09/22 03:16 Respiratory Rate 18 06/09/22 03:16 Blood Pressure 117/82 06/09/22 03:16 Pulse Oximetry 100 06/09/22 03:16 Oxygen Delivery Room Air 06/09/22 03:16 MDM - Nausea/Vomiting/Diarrhea MDM Narrative Medical decision making narrative: Urinalysis consistent with urinary tract infection. On further questionin
[2022-06-09 03:16] VITALS: BP 117/82; PULSE 82; RESP 18; TEMP 37.2; O2SAT 100
[2022-06-09] MEDS: SODIUM CHLORIDE 0.9% IV 1,000 ML 999 ML IV CONT (03:21)
[2022-06-09] MEDS: ONDANSETRON INJ 4 MG/2 ML VIAL IV PUSH (03:35)
[2022-06-09 04:07] LABS: Appearance Urine Slightly Cloudy (Clear); Bilirubin Urine 1+ (Negative); Blood Urine Negative (Negative); Glucose Urine UA Negative (Negative); Ketones Urine 2+ mg/dL (Negative); Leukocyte Esterase Ur Trace LEU/UL (Negative); Nitrate Urine Negative (Negative); Protein Urine Negative (Negative); pH Urine 6.5 (5.0-9.0)
[2022-06-09 04:11] LABS: Bacteria Urine Trace /hpf; Mucus Urine Heavy /lpf; Squamous Epithelial Cell Urine Many /hpf (Few)
[2022-06-09 04:12] LABS: Add Urine Microscopic? YES; Color Urine Dark Yellow (Yellow)
[2022-06-09 04:56] VITALS: BP 110/72; PULSE 72; RESP 16; O2SAT 100
== END 2022-06-09 05:00 | disposition home or self-care (01) ==
PROVIDERS: Emergency Provider Emergency Medicine; PCP Family Medicine
DX: E86.0 Dehydration (principal); O99.281 Endocrine, nutritional and metabolic diseases complicating pregnancy, first trimester; O23.41 Unspecified infection of urinary tract in pregnancy, first trimester; N39.0 Urinary tract infection, site not specified; R11.2 Nausea with vomiting, unspecified
CPT/HCPCS: 81001; 81025; 87086; 87088; 96361; 96374; 96375; 99284; J0131; J2405; J7030

== ENCOUNTER 2022-06-22 17:51 | Emergency (ER) | payer OTHER, SELFPAY ==
[2022-06-22 17:54] VITALS: BP 124/82; PULSE 87; RESP 16; TEMP 36.1; O2SAT 100
--- NOTE | 2022-06-22 17:58 | ED.NAVMDI ---
HPI - Nausea/Vomiting/Diarrhea General Chief complaint: Nausea/Vomiting/Diarrhea Stated complaint: nausea, headache, dehydration Time Seen by Provider: 06/22/22 17:58 Source: patient Mode of arrival: ambulatory Limitations: no limitations History of Present Illness HPI Narrative: Patient is a 27-year-old female , currently 10 weeks dated by last menstrual period May 02 presenting to the emergency department for evaluation of recurrent nausea and vomiting in the setting of her Zofran prescription running out. Patient states that she had contacted her [facility] for refill of her Zofran, but this was sent to a pharmacy that the patient reportedly cannot fill her prescription until Thursday (tomorrow). Pt denies vaginal bleeding, pelvic pain, loss of fluids. She has not tolerated any oral intake today. She denies fever, chills, cough, dysuria or hematuria. She has follow up with Dr. Milagro Heredia on 07/15 per patient. Patient blood type is O positive per chart review. Related Data Allergies Allergy/AdvReac Type Severity Reaction Status Date / Time No Known Allergies Allergy Mild Verified 04/17/22 14:29 Review of Systems Review of Systems: CONSTITUTIONAL: Denies fever, chills, or sweats. EYES: Denies visual changes, redness, or discharge. ENT: Denies rhinorrhea, congestion, sore throat, or otalgia. CARDIOVASCULAR: Denies chest pain, palpitations, or edema. RESPIRATORY: Denies cough or dyspnea. GASTROINTESTINAL: Denies abdominal pain, reports nausea and vomiting GENITOURINARY: Denies dysuria or hematuria. SKIN: Denies rash or itching. MUSCULOSKELETAL: Denies back pain, joint pain, or myalgia. NEUROLOGIC: She reports headache without numbness [facility] Past Medical History Medical History Herpes simplex virus (HSV) type I or type II DNA not detected by PCR Surgical History Surgical History Delivery by section Family History Family History Other Unknown family medical history Social History Social History Smoking status: Never smoker Alcohol intake: never Substance use: never Gender identity (if verbalized by the patient): Female Spiritual care concerns: No Exam Narrative: GENERAL: Awake, alert, conversant HEAD: Normocephalic, atraumatic. EYES: PERRLA and EOMI. ENT: Nares clear, no rhinorrhea or epistaxis. Mucous membranes moist. NECK: Supple. CHEST: No respiratory distress, breathing even and non labored HEART: Regular rate, sinus rhythm ABDOMEN:Non distended, non tender EXTREMITIES: Normal range of motion. No edema. SKIN: Warm, dry, no rash. NEURO:No focal deficits. Alert and oriented x3 Course Vital Signs Vital signs: Vital Signs Temperature 36.1 C L 06/22/22 17:54 Pulse Rate 87 06/22/22 17:54 Respiratory Rate 16 06/22/22 17:54 Blood Pressure 124/82 06/22/22 17:54 Pulse Oximetry 100 06/22/22 17:54 Oxygen Delivery Room Air 06/22/22 17:54 Temperature 36.1 C L 06/22/22 17:54 Pulse Rate 87 06/22/22 17:54 Respiratory Rate 16 06/22/22 17:54 Blood Pressure 124/82 06/22/22 17:54 Pulse Oximetry 100 06/22/22 17:54 Oxygen Delivery Room Air 06/22/22 17:54 MDM - Nausea/Vomiting/Diarrhea MDM Narrative Medical decision making narrative: Patient presented for evaluation of nausea, vomiting in the setting of early . Patient's blood type is O+ per chart review. IV access obtained and labs are drawn. Laboratory results are reassuring. No severe electrolyte derangement or acute kidney injury. No significant anemia. Awaiting urinalysis to evaluate for urinary tract infection although patient is not having any dysuria or hematuria. She denies any pelvic pain, vaginal bleeding, cramping, contraction-like pain or loss of fluids,
[2022-06-22] MEDS: SODIUM CHLORIDE 0.9% IV 1,000 ML 999 ML IV CONT (18:15)
[2022-06-22] MEDS: FAMOTIDINE 20 MG/2 ML VIAL IV PUSH (18:15)
[2022-06-22] MEDS: ONDANSETRON INJ 4 MG/2 ML VIAL IV PUSH (18:15)
[2022-06-22] MEDS: DEXTROSE 5%/0.45% SOD CHL 1,000 ML 100 ML IV CONT (18:20)
[2022-06-22 18:25] LABS: Basophils Percent Auto 0.3 % (0.2-1.2); Eosinophils Percent Auto 0.1 % (0-4.4); Hematocrit 38.9 % (37.0-47.0); Hemoglobin 13.5 g/dL (12.0-15.0); Immature Granulocyte Absolute 0.01 K/mm3 (0.00-0.031); Immature Granulocyte Percent A 0.1 % (0-0.5); Lymphocytes Absolute Auto 1.02 K/mm3 (0.9-3.2); Mean Corpuscular HGB Conc 34.7 g/dl (32-36); Mean Corpuscular Hemoglobin 29.1 pg (26-34); Mean Corpuscular Volume 83.8 fl (80-100); Monocytes Absolute Auto 0.5 K/mm3 (0.1-0.6); Monocytes Percent Auto 7.2 % (2.6-8.5); Neutrophils Absolute Auto 5.2 K/mm3 (1.3-6.7); Neutrophils Percent Auto 77.3 % (45.5-73.1); Platelet Count Result 224 k/mm3 (150-375); Red Blood Count 4.64 M/mm3 (4.2-5.4); Red Cell Distribution Width 13.3 % (11.5-14.5); White Blood Count 6.8 K/mm3 (4.5-10.0)
[2022-06-22 18:36] LABS: Alanine Aminotransferase 14 U/L (6-35); Albumin Level 4.9 g/dL (3.5-5.1); Alkaline Phosphatase 79 U/L (38-126); Anion Gap 13 mmol/L (8-16); Aspartate Amino Transferase 23 U/L (14-36); Bilirubin,Total 0.5 mg/dL (0.2-1.3); Blood Urea Nitrogen 10 mg/dL (7-17); Calcium 9.8 mg/dL (8.4-10.2); Carbon Dioxide 24 mmol/L (22-30); Chloride 98 mmol/L (98-107); Estimated CRCL calculation 96 ml/min; Estimated Glomerular Filt Rate > 60; Glucose 105 mg/dL (65-110); Lipase 28 U/L (23-300); Potassium 3.8 mmol/L (3.4-5.0); Sodium 135 mmol/L (137-145)
[2022-06-22 19:26] LABS: Appearance Urine Clear (Clear); Bilirubin Urine Negative (Negative); Blood Urine Negative (Negative); Color Urine Yellow (Yellow); Glucose Urine UA 3+ mg/dL (Negative); Ketones Urine 3+ mg/dL (Negative); Leukocyte Esterase Ur Trace LEU/UL (Negative); Nitrate Urine Negative (Negative); Protein Urine Negative (Negative); Urobilinogen Urine 0.2 mg/dL (<2.0)
[2022-06-22] MEDS: LACTATED RINGERS 1,000 ML 999 ML IV CONT (19:35)
[2022-06-22 19:36] LABS: Mucus Urine Few /lpf; Squamous Epithelial Cell Urine Many /hpf (Few)
[2022-06-22 19:41] LABS: Add Urine Microscopic? YES
[2022-06-22 20:56] VITALS: BP 136/74; PULSE 80; RESP 16; O2SAT 98
== END 2022-06-22 20:56 | disposition home or self-care (01) ==
PROVIDERS: Emergency Provider Emergency Medicine; PCP Family Medicine
DX: O21.1 Hyperemesis gravidarum with metabolic disturbance (principal); Z3A.10 10 weeks gestation of pregnancy
CPT/HCPCS: 36415; 80053; 81001; 83690; 84702; 85025; 87086; 87088; 96361; 96374; 96375; 99284; J2405; J7030; J7120

== ENCOUNTER 2022-06-29 16:31 | Emergency (ER) | payer OTHER, SELFPAY ==
[2022-06-29 16:32] VITALS: BP 142/84; PULSE 95; RESP 16; TEMP 36.3; O2SAT 100
--- NOTE | 2022-06-29 17:57 | ED.NECK ---
HPI - Neck Pain/Injury General Chief Complaint: Neck Pain/Injury Stated Complaint: neck spasms Time Seen by Provider: 06/29/22 17:00 History of Present Illness HPI Narrative: 27-year-old female presents the emergency room for evaluation of neck spasms. Patient states she recently started taking Reglan for nausea related to her , and has noticed that her neck will begin to twist to the right causing her to look up. Where she is frequently having to readjust her head to look forward. Patient states this has been occurring for the past 3 hours. Patient denies any injury or trauma. Related Data Allergies Allergy/AdvReac Type Severity Reaction Status Date / Time metoclopramide [From Reglan] Allergy Severe Other Verified 06/29/22 18:12 Review of Systems Review of Systems: CONSTITUTIONAL: Denies fever, chills, or sweats. EYES: Denies visual changes, redness, or discharge. ENT: Denies rhinorrhea, congestion, sore throat, or otalgia. CARDIOVASCULAR: Denies chest pain, palpitations, or edema. RESPIRATORY: Denies cough or dyspnea. GASTROINTESTINAL: Denies abdominal pain, nausea, vomiting, or diarrhea. GENITOURINARY: Denies dysuria or hematuria. SKIN: Denies rash or itching. MUSCULOSKELETAL: Reports neck pain NEUROLOGIC: Denies headache, numbness, dizziness, or weakness. PSYCHIATRIC: Denies anxiety or depression. 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 HEAD: Normocephalic, atraumatic. EYES: Conjunctivae normal, PERRLA and EOMI. NECK: Supple. No adenopathy or masses. CHEST: Clear to auscultation. No respiratory distress. No wheezes rales or rhonchi. No tenderness. HEART: Regular rate and rhythm. No murmur heard. Normal peripheral pulses. BACK: No midline cervical tenderness, step-offs, bony abnormality; FROM. Patient noted to continue to rotate her neck to the right and left upwards toward the ceiling and then abruptly readjust to look forward EXTREMITIES: Normal range of motion. No edema. No clubbing or cyanosis SKIN: Warm, dry, no rash. No noted wounds NEURO: No focal deficits. Alert and oriented x3. MAEW. CN's II-XI intact bilaterally, normal gait PSYCH: Cooperative. Normal mood and affect. Course Vital Signs Vital signs: Vital Signs Temperature 36.3 C L 06/29/22 16:32 Pulse Rate 95 06/29/22 16:32 Respiratory Rate 16 06/29/22 16:32 Blood Pressure 142/84 H 06/29/22 16:32 Pulse Oximetry 100 06/29/22 16:32 Oxygen Delivery Room Air 06/29/22 16:32 Temperature 36.3 C L 06/29/22 16:32 Pulse Rate 95 06/29/22 16:32 Respiratory Rate 16 06/29/22 16:32 Blood Pressure 142/84 H 06/29/22 16:32 Pulse Oximetry 100 06/29/22 16:32 Oxygen Delivery Room Air 06/29/22 16:32 MDM - Neck Pain/Injury MDM Narrative Medical decision making narrative: 19-year-old female presented the emergency room for evaluation of abnormal neck movements. Patient states she began taking Reglan this morning for her nausea, and about 4 hours prior to arrival noticed that her head was involuntarily looking up to the ceiling. Patient is likely experiencing extraparametal side effect of the Reglan. Will have patient stop taking the Reglan and begin taking Zofran for her nausea. Dischar
[2022-06-29] MEDS: diphenhydrAMINE HCl CAP 25 MG CAPSULE 50 MG PO (18:09)
[2022-06-29] MEDS: diphenhydrAMINE HCl INJ 50 MG/ML VIAL 25 MG IV PUSH (18:49)
[2022-06-29] MEDS: ONDANSETRON INJ 4 MG/2 ML VIAL IV PUSH (18:49)
[2022-06-29 19:13] VITALS: BP 126/74; PULSE 91; RESP 20; O2SAT 100
== END 2022-06-29 19:18 | disposition home or self-care (01) ==
PROVIDERS: Emergency Provider Nurse Practitioner Family; PCP Family Medicine
DX: O99.891 Other specified diseases and conditions complicating pregnancy (principal); M62.838 Other muscle spasm; O21.9 Vomiting of pregnancy, unspecified; Z3A.09 9 weeks gestation of pregnancy
CPT/HCPCS: 96374; 96375; 99284; A9270; J1200; J2405

== ENCOUNTER 2022-11-21 08:25 | Outpatient (CLI) | payer OTHER, SELFPAY ==
[2022-11-21 10:29] LABS: Basophils Percent Auto 0.2 % (0.2-1.2); Eosinophils Percent Auto 0.4 % (0-4.4); Hematocrit 31.7 % (37.0-47.0); Hemoglobin 10.7 g/dL (12.0-15.0); Immature Granulocyte Absolute 0.05 K/mm3 (0.00-0.031); Immature Granulocyte Percent A 0.6 % (0-0.5); Lymphocytes Absolute Auto 1.23 K/mm3 (0.9-3.2); Lymphocytes Percent Auto 14.7 % (18.3-44.2); Mean Corpuscular HGB Conc 33.8 g/dl (32-36); Mean Corpuscular Hemoglobin 30.1 pg (26-34); Mean Corpuscular Volume 89.3 fl (80-100); Mean Platelet Volume 8.9 fl (7.4-10.4); Monocytes Absolute Auto 0.5 K/mm3 (0.1-0.6); Monocytes Percent Auto 5.4 % (2.6-8.5); Neutrophils Absolute Auto 6.6 K/mm3 (1.3-6.7); Neutrophils Percent Auto 78.7 % (45.5-73.1); Platelet Count Result 187 k/mm3 (150-375); Red Blood Count 3.55 M/mm3 (4.2-5.4); White Blood Count 8.4 K/mm3 (4.5-10.0)
[2022-11-21 10:38] LABS: Glucose 1 Hour PP 50gm Dose 119 mg/dL
[2022-11-21 11:19] LABS: HIV 1/2 Ab P24 Ag Result Negative (Negative)
== END 2022-11-21 08:26 | disposition home or self-care (01) ==
PROVIDERS: PCP Family Medicine; Visit Provider Obstetrics & Gynecology
DX: Z34.90 Encounter for supervision of normal pregnancy, unspecified, unspecified trimester (principal)
CPT/HCPCS: 36415; 82947; 85025; 86703; G0432

== ENCOUNTER 2023-01-26 07:03 | Outpatient (CLI) | payer OTHER, SELFPAY ==
[2023-01-26 07:42] LABS: Hematocrit 34.9 % (37.0-47.0); Hemoglobin 11.6 g/dL (12.0-15.0); Mean Corpuscular HGB Conc 33.2 g/dl (32-36); Mean Corpuscular Hemoglobin 30.4 pg (26-34); Mean Corpuscular Volume 91.4 fl (80-100); Mean Platelet Volume 9.5 fl (7.4-10.4); Platelet Count Result 163 k/mm3 (150-375); Red Blood Count 3.82 M/mm3 (4.2-5.4); Red Cell Distribution Width 14.1 % (11.5-14.5); White Blood Count 7.8 K/mm3 (4.5-10.0)
[2023-01-26 11:30] LABS: Rapid Plasma Reagin Non-Reactive (NonReactive)
== END 2023-01-26 07:04 | disposition home or self-care (01) ==
PROVIDERS: PCP Family Medicine; Visit Provider Obstetrics & Gynecology
DX: Z01.812 Encounter for preprocedural laboratory examination (principal)
CPT/HCPCS: 36415; 85027; 86592; 86850; 86900; 86901

== ENCOUNTER 2023-01-27 05:26 | Inpatient (IN) | payer OTHER, SELFPAY ==
[2023-01-27] VITALS (67 sets, daily range): BP systolic 83–117; BP diastolic 50–77; PULSE 68–92; RESP 12–17; TEMP 36.4–37.2; O2SAT 96–100; BMI 28.6
--- NOTE | 2023-01-27 05:43 | LDADM ---
This patient, Bessy Orlando, was admitted to Labor/Delivery/Recovery 120 on 01/27/23 at 05:26. Plans for labor, pain management and were discussed with patient. Patient/family oriented to hospital policies and general routines including ID bracelet, bed and alarms, visiting hours, pain management, procedures, bathroom and other care routines, personal items, smoking policy, room service/diet and guest tray routines, infant security routines, and visiting hours. Patient/Family are encouraged to report perceived risks to care and to ask questions if they do not understand what they are told or what they should do. See [facility]BI[facility] for further documentation.
[2023-01-27] MEDS: LACTATED RINGERS 1,000 ML 125 ML IV CONT ×2 (05:52→07:01)
--- NOTE | 2023-01-27 07:21 | WPDHPUPDATE1 ---
History and Physical Update Update Date/Time: 01/27/23 07:21 History and Physical has been reviewed, including an updated exam of the patient. There are NO changes in the patient's condition. Risks, benefits, and alternatives have been discussed and questions answered. Patient agrees to proceed with procedure.
--- NOTE | 2023-01-27 07:21 | WPDOBADMIT ---
Obstetrics - Admit Note Admission Note: record reviewed. No pertinent additions to the history and/or any subsequent changes in the physical findings that are not consistent with the expected course of the were found. Additions to the history and/or subsequent changes in the physical findings follow. None.
--- NOTE | 2023-01-27 07:24 | WPDANESEPPF ---
Anes - Initial Pre Proc Eval Procedure: Operation Date: 01/27/23 07:30 Proposed Procedures p Repeat Section - Hal Chowdary MD Date/Time: 01/27/23 07:24 Surgeon: Hal Chowdary MD Pre Op Diagnosis: Previous Pre Op Diagnosis: C/S Patient Data Age: 28 Gender: F Height: 1.57 m Weight: 71 kg Last Vital Signs Temp 36.9 C 01/27/23 05:51 Pulse 83 01/27/23 06:33 Resp 16 01/27/23 05:51 BP 99/64 L 01/27/23 06:33 O2 Del Method Room Air 01/27/23 05:42 Allergies Allergy/AdvReac Type Severity Reaction Status Date / Time metoclopramide [From Reglan] Allergy Severe Other Verified 01/21/23 09:58 Home Medications Medication Instructions Recorded Confirmed Type vits no.126-ferrous fum 1 tablet PO DAILY #90 tabs 11/24/22 01/27/23 Rx 28 mg iron-folic acid 800 mcg tablet (Classic ) ferrous sulfate 325 mg (65 mg 325 mg PO DAILY 11/28/22 01/21/23 History iron) tablet : gestational age (MAYRA 01/31/23) Patient hx anesthesia problems: none Family hx anesthesia problems: none Prior surgeries: Results Review: All pre-operative results and documents have been reviewed as part of the pre-operative evaluation. [facility] Past Medical History Medical History Herpes simplex virus (HSV) type I or type II DNA not detected by PCR Surgical History Surgical History Delivery by section Family History Family History Other Unknown family medical history Social History Social History Smoking status: Never smoker Alcohol intake: never Substance use: never Lack of Transportation: No Lack of Food: Never True Current Housing: I Have Housing Concerned About Future Housing: No Difficulty Paying Gas/Electric Bills: No Difficulty Paying for Meds: No Currently Unemployed: No Education: High School Diploma/GED Difficulty w/ Childcare or Family Care: No Living arrangements: with family Additional living arrangements comments: single 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 Informed Consent: The patient's anesthetic plan and its attendant risks and benefits were discussed with the patient/family/POA. Questions were solicited and answers provided to the satisfaction of the patient/family/POA.
[2023-01-27] MEDS: ceFAZolin 2 GM/D5W 50 ML 2 GM/50 ML BAG IVPB (07:30)
--- NOTE | 2023-01-27 08:31 | PM.OBPRVD ---
OB - Delivery Note Procedure Procedure: Procedures Operation Date: 01/27/23 07:30 <No data on this case meets the specified criteria> Events: Previous Delivery Delivery monitor: External FHT and External Uterine Route of delivery: Specimen: No Quantitative Blood Loss (ml): 560 Complications: None Narrative: Patient prepped and draped in usual manner for this procedure. Pfannenstiel incision was made and carried down to the fascia which was then extended bilaterally the length of the skin incision. Superiorly and inferiorly the rectus muscles were dissected away from the fascia and the peritoneum was readily entered. Bladder flap was developed and uterus scored. Extended the lower segment and clear fluid was noted at rupture. Vertex was delivered without difficulty nuchal cord x2 was reduced and the rest of baby delivered. Cord was clamped and cut and placenta was removed manually. Uterus was exteriorized again cleared of membranes and clots in approximated using 0 Monocryl suture in a running interlocking manner with good approximation hemostasis noted. Uterus was turned the abdomen and all subfascial tissue was noted be hemostatic. Fascia was approximated using 0 Vicryl from the left angle midline and the right angle to midline with good approximation hemostasis noted. Subcutaneous tissue was approximated using 0 plain suture and skin waylon were used to approximate the skin edges. Patient was then sent to the recovery room in stable condition. [place] Baby Weeks of gestation at delivery: 39 gender: Male Weight (pounds): 7 Weight (ounces): 7 presentation: vertex Placenta delivery description: Manual Removal Cord Vessel Description: 3 Vessels, Nuchal Cord (times 2) and Reduced score one minute: 9 score five minutes: 9 AMG Delivery Billing Delivery Delivery: Delivery Charge
[2023-01-27] MEDS: OXYTOCIN 30 UNITS/NS 500 ML 30 UNITS/500 ML BAG 125 UNITS IV CONT (08:46)
[2023-01-27] MEDS: MORPHINE SULFATE INJ (*CRX) 10 MG/ML AMP 2 MG IV PUSH ×2 (09:31→10:48)
[2023-01-27] MEDS: KETOROLAC 30 MG/ML VIAL (*BKC) IV PUSH ×3 (09:33→22:27)
[2023-01-27] MEDS: HYDROcodone/acetaminophen (*CRX) 10-325 MG TABLET 1 TAB PO ×2 (11:50→22:27)
[2023-01-27] MEDS: SIMETHICONE 80 MG TAB.CHEW PO ×2 (11:50→23:10)
[2023-01-27] MEDS: DEXTROSE 5%/0.45% SOD CHL 1,000 ML 125 ML IV CONT (13:00)
[2023-01-27] MEDS: HYDROcodone/acetaminophen (*CRX) 5-325 MG TABLET 1 TAB PO ×2 (15:58→19:53)
[2023-01-27] MEDS: DOCUSATE SODIUM 100 MG CAPSULE PO (16:00)
[2023-01-28] MEDS: HYDROcodone/acetaminophen (*CRX) 10-325 MG TABLET 1 TAB PO ×5 (02:07→22:18)
[2023-01-28] MEDS: SIMETHICONE 80 MG TAB.CHEW PO ×4 (02:10→22:18)
[2023-01-28 04:34] VITALS: BP 92/55; PULSE 75; RESP 16; TEMP 36.1
[2023-01-28] MEDS: KETOROLAC 30 MG/ML VIAL (*BKC) IV PUSH (04:47)
[2023-01-28 05:05] LABS: Basophils Percent Auto 0.2 % (0.2-1.2); Eosinophils Absolute Auto 0.1 K/mm3 (0-0.3); Eosinophils Percent Auto 0.6 % (0-4.4); Hematocrit 29.9 % (37.0-47.0); Hemoglobin 9.7 g/dL (12.0-15.0); Immature Granulocyte Absolute 0.03 K/mm3 (0.00-0.031); Immature Granulocyte Percent A 0.4 % (0-0.5); Lymphocytes Absolute Auto 1.73 K/mm3 (0.9-3.2); Lymphocytes Percent Auto 20.8 % (18.3-44.2); Mean Corpuscular HGB Conc 32.4 g/dl (32-36); Mean Corpuscular Hemoglobin 30.2 pg (26-34); Mean Corpuscular Volume 93.1 fl (80-100); Mean Platelet Volume 9.6 fl (7.4-10.4); Monocytes Absolute Auto 0.5 K/mm3 (0.1-0.6); Monocytes Percent Auto 6.3 % (2.6-8.5); Neutrophils Percent Auto 71.7 % (45.5-73.1); Platelet Count Result 135 k/mm3 (150-375); Red Blood Count 3.21 M/mm3 (4.2-5.4); Red Cell Distribution Width 13.9 % (11.5-14.5); White Blood Count 8.3 K/mm3 (4.5-10.0)
[2023-01-28 07:50] VITALS: BP 82/47; PULSE 78; RESP 16; TEMP 36.6; O2SAT 99
--- NOTE | 2023-01-28 08:01 | WPDANLDPN2 ---
Anes-Prog Note L&D Date/Time: 01/28/23 08:01 Comfortable throughout: section Neuraxial method: spinal Epidural/Spinal procedure site: clean & non-tender Neuro status: Neuro function grossly intact. Cardiovascular status: normal Respiratory status: normal Airway patency: baseline Mental status: baseline Post-Op hydration status: normal Vital Signs: Last Vital Signs Temp 36.1 C L 01/28/23 04:34 Pulse 75 01/28/23 04:34 Resp 16 01/28/23 04:34 BP 92/55 L 01/28/23 04:34 Pulse Ox 99 01/27/23 15:35 O2 Del Method Room Air 01/27/23 15:35 Pain score (VAS): 3 I/O: Intake & Output 01/27/23 01/28/23 01/28/23 23:59 07:59 15:59 Intake Total 800 800 Output Total 1600 1000 Balance -800 -200 Post-procedural complaints: none Patient feedback: Patient satisfied with anesthetic care.
--- NOTE | 2023-01-28 08:01 | WPDANLDNPN2 ---
Anes-Prog Note L&D-Neuraxial Date/Time: 01/28/23 08:01 Neuraxial medications: intrathecal PF morphine Opiod-related complaints: none Patient feedback: Patient satisfied with post-operative pain management.
--- NOTE | 2023-01-28 08:03 | P.PNOB_ITS ---
OB - PN: Subj Subjective Date/time seen: 01/28/23 08:03 Interval history: Patient doing well this AM. she is ambulating out of bed. She is tolerating p.o.. She reports adequate pain control. Her bleeding is normal and she reports normal lochia. She denies fever, chills, N/V. She has not yet passed flatus. Patient comments: no complaints and pain well controlled; no flatus present OB - PN: Obj Data Labs 01/28/23 04:41 Labs: Laboratory Results - last 24 hr 01/28/23 04:41 WBC 8.3 RBC 3.21 L Hgb 9.7 L Hct 29.9 L MCV 93.1 MCH 30.2 MCHC 32.4 RDW 13.9 Plt Count 135 L MPV 9.6 Immature Gran % (Auto) 0.4 Neut % (Auto) 71.7 Lymph % (Auto) 20.8 [place] % (Auto) 6.3 Eos % (Auto) 0.6 Baso % (Auto) 0.2 Lymph # (Auto) 1.73 [place] # (Auto) 0.5 Eos # (Auto) 0.1 Baso # (Auto) 0.0 Abs Immat Gran (auto) 0.03 Absolute Neuts (auto) 6.0 Absolute Nucleated RBC 0.0 Nucleated RBC % 0.0 OB - PN A/P Plan day: 1 Plan: routine care Comments: patient doing well this AM ambulating and voiding spontaneously tolerating regular diet H/H 9.7, asymptomatic continue routine PP care plan for circumcision today. risks, benefits, alternatives discussed. Maternal consent obtained Time Spent With Patient Time: Total time spent is greater than 50% in coordination of care (as documented) at patient's floor/unit and/or counseling patient: Time with patient: less than 15 minutes Review of Systems 2 Constitutional: Constitutional: Reports no additional constitutional complaints Cardiovascular: Cardiovascular: Reports no additional cardiovascular complaints Respiratory: Respiratory: Reports no additional respiratory complaints Gastrointestinal: Gastrointestinal: Reports no additional gastrointestinal complaints Genitourinary: Genitourinary: Reports no additional female genitourinary complaints Exam Const: General: comfortable and no acute distress Resp: Effort & Inspection: normal respiratory effort Auscultation: clear to auscultation bilaterally Cardio: Rate: regular rate GI: GI Palp: Yes Soft to palpation and Yes Tenderness to palpation present (GI) (appropriately tender around incision ) Auscultation: normal bowel sounds Other: fundus firm and below umbilicus Incision C/D/I Urinary Catheter: Urinary Catheter: urine clear Psych: Appearance: grossly normal Mental Status: mental status grossly normal Affect: normal affect
[2023-01-28 09:00] VITALS: BP 92/51; PULSE 80; RESP 16; O2SAT 97
[2023-01-28] MEDS: DOCUSATE SODIUM 100 MG CAPSULE PO ×2 (09:00→17:00)
[2023-01-28] MEDS: MULTIVIT/MIN/PREN/FOL AC/IRON TABLET 1 TAB PO (09:00)
[2023-01-28] MEDS: POLYSACCHARIDE IRON COMPLEX 150 MG CAPSULE PO ×2 (09:00→17:07)
[2023-01-28] MEDS: IBUPROFEN 600 MG TABLET PO ×2 (12:30→18:45)
[2023-01-28] MEDS: HYDROcodone/acetaminophen (*CRX) 5-325 MG TABLET 1 TAB PO (12:30)
[2023-01-28 18:44] VITALS: BP 104/56; PULSE 75; RESP 16; TEMP 36.4
[2023-01-29] MEDS: SIMETHICONE 80 MG TAB.CHEW PO ×7 (01:35→20:52)
[2023-01-29] MEDS: HYDROcodone/acetaminophen (*CRX) 10-325 MG TABLET 1 TAB PO ×7 (01:35→20:52)
[2023-01-29] MEDS: IBUPROFEN 600 MG TABLET PO ×4 (01:35→20:52)
[2023-01-29 08:10] VITALS: BP 99/58; PULSE 76; RESP 16; TEMP 36.8; O2SAT 99
[2023-01-29] MEDS: MULTIVIT/MIN/PREN/FOL AC/IRON TABLET 1 TAB PO (08:16)
[2023-01-29] MEDS: POLYSACCHARIDE IRON COMPLEX 150 MG CAPSULE PO ×2 (08:17→17:52)
[2023-01-29] MEDS: DOCUSATE SODIUM 100 MG CAPSULE PO ×2 (08:17→17:52)
--- NOTE | 2023-01-29 10:33 | PM.OBDSVD ---
DS: Admitting Diagnosis Discharge Date 01/30/23 Admitting Diagnosis intrauterine at term History of previous OB - DS: Summary OB Procedures : None OB Procedures Intrapartum: OB Procedures: : None Peripartum Data Infant Delivery Method: Section Procedures: Procedures Operation Date: 01/27/23 07:30 Actual Procedure Side Surgeon p Section Hal Chowdary MD complications: none Status at Discharge Functional status at discharge: independent ambulation Overall status at discharge: patient is progressing back to baseline Time Spent with Patient Time attestation: Total time spent providing and/or coordinating discharge services: Time spent: Less than 30 minutes Exam Const: General: comfortable and no acute distress Resp: Effort & Inspection: normal respiratory effort Auscultation: clear to auscultation bilaterally Cardio: Rate: regular rate GI: Inspection: non-distended GI Palp: Yes Soft to palpation, No Firmness to palpation present (GI), Yes Tenderness to palpation present (GI) (mild tenderness over incision ) and No Guarding due to palpation present (GI) Auscultation: normal bowel sounds Psych: Appearance: grossly normal Mental Status: mental status grossly normal Discharge Plan Discharge Discharging Clinician: [facility] Patient Disposition: Home, Self-Care Activity: as tolerated and pelvic rest Diet: regular Patient Instructions: Antibiotic Form, (DC) Stand Alone Forms: General Discharge Information Follow-up/Referrals: Hal Chowdary MD [Physician] - 1 Week Discharge Medications: New oxycodone-acetaminophen 5-325 mg tablet 1 tablet PO Q6H PRN (Reason: pain) Qty: 28 0RF polysaccharide iron complex 150 mg iron Capsule 150 mg PO BIDWM Qty: 60 0RF ibuprofen 600 mg tablet 600 mg PO Q6H PRN (Reason: pain) Qty: 30 0RF Continued ferrous sulfate 325 mg (65 mg iron) tablet 325 mg PO DAILY Classic 28 mg iron- 800 mcg tablet 1 tablet PO DAILY Qty: 90 3RF Date of admission: 01/27/23 05:26 Primary Care Provider: Santos,Vivien Rodriguez Admitting Provider: Hal Chowdary Attending physician on admission: Hal Chowdary Condition: Stable
[2023-01-29] MEDS: LIDOCAINE 5% PATCH 1 PATCH TRANSDERM (12:52)
--- NOTE | 2023-01-29 13:08 | P.PNOB_ITS ---
OB - PN: Subj Subjective Date/time seen: 01/29/23 13:08 Interval history: Patient doing well Today. she is ambulating out of bed. She is tolerating p.o.. patient states her pain is controlled overall but states she is having some incisional discomfort and burning. Patient was unaware that she had waylon for suture closure. Patient had questions about staple removal. Her bleeding is normal and she reports normal lochia. She denies fever, chills, N/V. She has not yet passed flatus. Patient comments: no complaints, pain well controlled, tolerating diet and flatus present OB - PN: Obj Data Labs 01/28/23 04:41 OB - PN A/P Plan day: 1 Plan: routine care Comments: patient doing well H/H stable, continue iron supplementation afebrile, VSS discussed waylon. Recommended staple removal in 1 week in office Patient complaining of incisional discomfort. Recommended continued ice packs. Will order lidocaine patch while inpatient patient would like to stay 1 more night due to pain and incisional discomfort continue routine post op care Time Spent With Patient Time: Total time spent is greater than 50% in coordination of care (as documented) at patient's floor/unit and/or counseling patient: Time with patient: less than 15 minutes Review of Systems Constitutional: Constitutional: Reports no additional constitutional complaints Cardiovascular: Cardiovascular: Reports no additional cardiovascular complain ts Respiratory: Respiratory: Reports no additional respiratory complaints Gastrointestinal: Gastrointestinal: Reports no additional gastrointestinal complaints Genitourinary: Genitourinary: Reports no additional female genitourinary compl aints Exam Const: General: comfortable and no acute distress Resp: Effort & Inspection: normal respiratory effort Auscultation: clear to auscultation bilaterally Cardio: Rate: regular rate GI: GI Palp: Yes Soft to palpation, Yes Tenderness to palpation present (GI) (around incision ) and No Guarding due to palpation present (GI) Auscultation: normal bowel sounds Other: incision C/D/I, covered with Dermabond Psych: Appearance: grossly normal Mental Status: mental status grossly normal Affect: normal affect
[2023-01-29 19:20] VITALS: BP 112/68; PULSE 82; RESP 16; TEMP 36.6
[2023-01-30] MEDS: SIMETHICONE 80 MG TAB.CHEW PO ×3 (01:20→08:01)
[2023-01-30] MEDS: HYDROcodone/acetaminophen (*CRX) 10-325 MG TABLET 1 TAB PO ×3 (01:20→08:01)
[2023-01-30] MEDS: IBUPROFEN 600 MG TABLET PO (04:33)
[2023-01-30] MEDS: DOCUSATE SODIUM 100 MG CAPSULE PO (08:01)
[2023-01-30] MEDS: MULTIVIT/MIN/PREN/FOL AC/IRON TABLET 1 TAB PO (08:01)
[2023-01-30] MEDS: MEASLES,MUMPS,RUBELLA VACCINE 0.5 ML VIAL SUB-Q (08:02)
[2023-01-30] MEDS: POLYSACCHARIDE IRON COMPLEX 150 MG CAPSULE PO (08:02)
[2023-01-30 08:55] VITALS: BP 117/77; PULSE 78; RESP 18; TEMP 36.9; O2SAT 99
[2023-01-31 10:25] VITALS: BP 121/71; PULSE 85; RESP 20; TEMP 36.7; O2SAT 100
== END 2023-01-30 11:10 | disposition home or self-care (01) | DRG 788 ==
LOC: ANHOB2 01-30 10:31 → ANHLDR 02-02 08:21 → ANHOB2 02-02 08:21
PROVIDERS: Admitting Provider Obstetrics & Gynecology; PCP Family Medicine; Visit Provider Student in an Organized Health Care Education/Training Program
PROC: 10D00Z1 Extraction of Products of Conception, Low, Open Approach (ICD-10-PCS; CPT 59514; principal; 2023-01-27 07:30)
DX: O34.211 Maternal care for low transverse scar from previous cesarean delivery (principal); Z37.0 Single live birth; Z3A.39 39 weeks gestation of pregnancy; O69.81X0 Labor and delivery complicated by cord around neck, without compression, not applicable or unspecified
CPT/HCPCS: 36415; 85025; 85027; 86592; 86850; 86900; 86901; 90710; A9270; J0131; J0690; J1885; J2270; J2274; J2370; J2405; J2590; J7120

== ENCOUNTER 2023-05-24 12:28 | Emergency (ER) | payer OTHER, SELFPAY | END 2023-05-24 12:48 | disposition left against medical advice (07) | PROVIDERS: Emergency Provider Nurse Practitioner; PCP Family Medicine | DX: Z53.21 Procedure and treatment not carried out due to patient leaving prior to being seen by health care provider (principal) | CPT/HCPCS: 99199 ==

== ENCOUNTER 2023-05-24 12:54 | Observation (INO) | payer OTHER, SELFPAY ==
--- NOTE | ~2023-05-24 | CT_ITS ---
EXAMINATION: CT abdomen pelvis w con DATE: 05/24/2023 16:02 INDICATION: RLQ pain and flank pain TECHNIQUE: Computed tomography (CT) of the abdomen and pelvis was performed with 100 mL Omnipaque-350 intravenous contrast. Automated exposure control and iterative reconstruction technique were employe d. The dose-length product was 313.68 mGy-cm. COMPARISON: None. FINDINGS: Lower thorax: Unremarkable Liver: Normal. Biliary/Gallbladder: Gallbladder is normal. No bile duct dilation. Pancreas: No mass or duct dilation. Spleen: Normal. Adrenals:No mass. Kidneys: No mass, stone, or hydronephrosis. GI tract: Mild distal esophageal and gastric wall edema No small or large bowel dilation. Borderline dilation of the distal aspect of the retrocecal appendix with mild hyperemia and mild surrounding inf lammatory change. Mesentery/Peritoneum: No ascites, mass, or free air. Retroperitoneum: No mass. Pelvis: Retroverted uterus. Normal bilateral ovaries. Normal urinary bladder. Soft Tissues: Soft tissues and body wall unremarkable. Bones: No acute osseous finding. IMPRESSION: Mild esophagitis/gastritis. Appendix findings may represent mild, acute, uncomplicated appendicitis in the appropriate clinical c ontext. Reviewed, dictated and finalized at location K. IMPRESSION: Mild esophagitis/gastritis. Appendix findings may represent mild, acute, uncomplicated appendicitis in the appropriate clinical context.
[2023-05-24 13:07] VITALS: BP 118/82; PULSE 87; RESP 16; TEMP 36.8; O2SAT 99
[2023-05-24 13:24] LABS: Basophils Percent Auto 0.6 % (0.2-1.2); Eosinophils Percent Auto 0.6 % (0-4.4); Hematocrit 41.5 % (37.0-47.0); Hemoglobin 14.1 g/dL (12.0-15.0); Lymphocytes Absolute Auto 1.62 K/mm3 (0.9-3.2); Lymphocytes Percent Auto 33.5 % (18.3-44.2); Mean Corpuscular Hemoglobin 28.8 pg (26-34); Mean Corpuscular Volume 84.9 fl (80-100); Mean Platelet Volume 9.1 fl (7.4-10.4); Monocytes Absolute Auto 0.4 K/mm3 (0.1-0.6); Monocytes Percent Auto 7.2 % (2.6-8.5); Neutrophils Absolute Auto 2.8 K/mm3 (1.3-6.7); Neutrophils Percent Auto 58.1 % (45.5-73.1); Platelet Count Result 250 k/mm3 (150-375); Red Blood Count 4.89 M/mm3 (4.2-5.4); Red Cell Distribution Width 13.2 % (11.5-14.5); White Blood Count 4.8 K/mm3 (4.5-10.0)
[2023-05-24 13:35] LABS: Alanine Aminotransferase 25 U/L (6-35); Albumin Level 5.3 g/dL (3.5-5.1); Alkaline Phosphatase 91 U/L (38-126); Anion Gap 11 mmol/L (8-16); Aspartate Amino Transferase 25 U/L (14-36); Bilirubin,Total 0.4 mg/dL (0.2-1.3); Blood Urea Nitrogen 13 mg/dL (7-17); Calcium 9.8 mg/dL (8.4-10.2); Carbon Dioxide 23 mmol/L (22-30); Chloride 105 mmol/L (98-107); Estimated CRCL calculation 97 ml/min; Estimated Glomerular Filt Rate > 60; Glucose 89 mg/dL (65-110); Lipase 48 U/L (23-300); Potassium 3.9 mmol/L (3.4-5.0); Sodium 139 mmol/L (137-145)
[2023-05-24 13:53] LABS: Appearance Urine Clear (Clear); Bacteria Urine Rare /hpf; Bilirubin Urine Negative (Negative); Blood Urine Negative (Negative); Color Urine Yellow (Yellow); Glucose Urine UA Negative (Negative); Ketones Urine Negative (Negative); Leukocyte Esterase Ur 1+ LEU/UL (Negative); Need Manual Microscopic Reviewed; Nitrate Urine Negative (Negative); Non Pathogenic Casts 0-2; Protein Urine Negative (Negative); RBC Urine 0-2 /hpf (0-2); Specific Grav Ur 1.023 (1.001-1.035); Squamous Epithelial Cell Urine Few /hpf (Few); Urobilinogen Urine 0.2 mg/dL (<2.0); WBC Urine 0-5 /hpf; pH Urine 5.5 (5.0-9.0)
[2023-05-24 13:55] LABS: Add Urine Microscopic? YES
--- NOTE | 2023-05-24 15:22 | ED.ABDPAIN ---
HPI - Abdominal Pain General Chief Complaint: Abdominal Pain <ELEAZAR Marcos Last Filed: 05/24/23 18:31> Stated Complaint: abd pain <ELEAZAR Marcos Last Filed: 05/24/23 18:31> Time Seen by Provider: 05/24/23 15:06 <ELEAZAR Marcos Last Filed: 05/24/23 18:31> History of Present Illness HPI narrative: 28-year-old female, , LMP 04/28/2023 reports for evaluation for intermittent right lower quadrant pain and right flank pain x2 days. Patient states the right lower quadrant pain is sharp in nature and is hard to pinpoint. States that sometimes it feels like it is more in her groin or her hip, and sometimes in her abdomen and flank. States the back pain is worse when she sits up straight. She denies nausea or vomiting, no diarrhea. Says her stools have been soft the past few days. She denies fever, body aches, chest pain or shortness of breath, dysuria or hematuria, vaginal discharge or concern for STDs, anorexia. Of note, she had a approximately 4 months ago without complications. <ELEAZAR Marcos Last Filed: 05/24/23 18:31> Related Data Home Medications: Home Medications Medication Instructions Recorded Confirmed ferrous sulfate 325 mg (65 mg 325 mg PO DAILY 11/28/22 04/23/23 iron) tablet cetirizine 10 mg capsule (Zyrtec) 10 mg PO DAILY PRN 02/17/23 04/23/23 <ELEAZAR Marcos Last Filed: 05/24/23 18:31> Allergies/Adverse Reactions: Allergies Allergy/AdvReac Type Severity Reaction Status Date / Time metoclopramide [From Reglan] Allergy Severe Other Verified 05/24/23 12:38 <ELEAZAR Marcos Last Filed: 05/24/23 18:31> Review of Systems Review of Systems: CONSTITUTIONAL: Denies fever, chills EYES: Denies visual changes, redness, or discharge. ENT: Denies rhinorrhea, congestion, sore throat, or otalgia. CARDIOVASCULAR: Denies chest pain, palpitations, or edema. RESPIRATORY: Denies cough or dyspnea. GASTROINTESTINAL: See HPI GENITOURINARY: Denies dysuria or hematuria. SKIN: Denies rash or itching. MUSCULOSKELETAL: See HPI NEUROLOGIC: Denies headache, numbness, dizziness, or weakness. PSYCHIATRIC: Denies anxiety or depression. 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 DNA not detected by PCR <Roxana Baeza PA-C - Last Filed: 05/24/23 18:31> Surgical History Surgical History: Surgical History Delivery by section (05/07/20) primary c/s Delivery by section (01/27/23) rpt c/s <Roxnaa Baeza PA-C - Last Filed: 05/24/23 18:31> Family History Family History: Family History Other Unknown family medical history <Roxana Baeza PA-C - Last Filed: 05/24/23 18:31> Social History Social History: Social History Smoking status: Never smoker Alcohol intake: never Substance use: never Lack of Transportation: No Lack of Food: Never True Current Housing: I Have Housing Concerned About Future Housing: No Difficulty Paying Gas/Electric Bills: No Difficulty Paying for Meds: No Currently Unemployed: No Education: High School Diploma/GED Difficulty w/ Childcare or Family Care: No Living arrangements: with family Additional living arrangements comments: single 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
[2023-05-24] MEDS: SODIUM CHLORIDE 0.9% IV 1,000 ML 999 ML IV CONT (15:50)
[2023-05-24] MEDS: PIPERACILLN/TAZ 3.375GM/NS50ML 3.375 GM/50 ML BAG IVPB ×2 (17:00→23:24)
[2023-05-24] MEDS: KETOROLAC 30 MG/ML VIAL (*BKC) IV PUSH (19:12)
[2023-05-24] MEDS: LORazepam INJ (*CRX) 2 MG/ML VIAL 0.5 MG IV PUSH (19:12)
--- NOTE | 2023-05-24 19:23 | PC.NURSE ---
This RN assumed care of patient. This RN took report from Bonny MICHAELS
[2023-05-24 21:00] VITALS: BMI 28.0
--- NOTE | 2023-05-24 22:48 | ADMGEN ---
This patient, Bessy Orlando, was admitted to 3 [facility] Surg Room 320-01. Patient/family oriented to hospital policies and general routines including ID bracelet, bed and alarms, visiting hours, pain management, procedures, bathroom and other care routines, personal items, smoking policy, room service/diet, and visiting hours. Information on how to activate the Rapid Response Team has been discussed. Patient/Family are encouraged to report perceived risks to care and to ask questions if they do not understand what they are told or what they should do.
[2023-05-24 23:17] VITALS: BP 126/90; PULSE 81; RESP 16; TEMP 36.4; O2SAT 100
[2023-05-25] VITALS (12 sets, daily range): BP systolic 113–140; BP diastolic 63–89; PULSE 63–76; RESP 10–18; TEMP 35.8–37.2; O2SAT 96–100
[2023-05-25] MEDS: PIPERACILLN/TAZ 3.375GM/NS50ML 3.375 GM/50 ML BAG IVPB ×3 (06:19→17:50)
[2023-05-25] MEDS: ACETAMINOPHEN 325 MG TABLET 650 MG PO ×2 (10:14→20:27)
[2023-05-25] MEDS: MORPHINE SULFATE (*CRX) 4 MG/ML INJ IV PUSH (11:51)
--- NOTE | 2023-05-25 12:23 | PM.IMHP ---
H&P: HPI History of Present Illness Date/Time: 05/25/23 12:23 Chief Complaint: acute appendicitis Narrative: The patient is a 28-year-old female presenting to the emergency department complaining of right lower quadrant, right flank abdominal pain. The patient reports the pain started Thursday and has progressively worsened over the last few days. Patient reports the pain is now pretty much constant with occasional sharp, stabbing pain. Patient reports decreased appetite since episode started. The patient denies any changes in bowel habits. The patient denies any fevers or chills. The patient denies any previous episodes. Workup in the emergency department, including imaging, is significant for acute uncomplicated appendicitis. Review of Systems Review of Systems: All systems reviewed & are unremarkable except as noted in HPI and below PMFSH Past Medical History Medical History Herpes simplex virus (HSV) type I or type II DNA not detected by PCR Surgical History Surgical History Delivery by section (05/07/20) primary c/s Delivery by section (01/27/23) rpt c/s Family History Family History Other Unknown family medical history Social History Social History Smoking status: Never smoker Second hand tobacco smoke exposure: No Alcohol intake: never Substance use: never Substance use type: does not use Lack of Transportation: No Lack of Food: Never True Current Housing: I Have Housing Concerned About Future Housing: No Difficulty Paying Gas/Electric Bills: No Difficulty Paying for Meds: No Currently Unemployed: No Education: High School Diploma/GED Difficulty w/ Childcare or Family Care: No Living arrangements: with family Additional living arrangements comments: single 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 Gender identity (if verbalized by the patient): Female Sexual Orientation (if Verbalized by the Patient): Straight or Heterosexual Spiritual care concerns: No Meds Home Medications and Allergies Home Medications Medication Instructions Recorded Confirmed Type ferrous sulfate 325 mg (65 mg 325 mg PO DAILY 11/28/22 05/25/23 History iron) tablet cetirizine 10 mg capsule (Zyrtec) 10 mg PO DAILY PRN Allergy Symptoms 02/17/23 05/25/23 History Allergies Allergy/AdvReac Type Severity Reaction Status Date / Time metoclopramide [From Reglan] Allergy Severe Other Verified 05/24/23 12:38 Vital Signs Vital Signs - 24 hr 05/24/23 13:07 05/24/23 23:17 05/25/23 05:46 Temperature 36.8 C 36.4 C L 36.4 C Pulse Rate 87 81 75 Respiratory Rate 16 16 14 Blood Pressure 118/82 126/90 113/63 Pulse Oximetry 99 100 100 Oxygen Delivery Room Air 05/25/23 09:29 Temperature Pulse Rate 70 Respiratory Rate Blood Pressure Pulse Oximetry 99 Oxygen Delivery Room Air Exam Const: General: cooperative, no acute distress, tired appearing and uncomfortable HENMT: Head: normal to inspection, normocephalic and atraumatic Eyes: General: appearance normal, both eyes and all related structures Neck: Neck: normal visual inspection, full ROM and no lymphadenopathy Resp: Auscultation: clear to auscultation bilaterally Cardio: Rate: regular rate Rhythm: regular rhythm GI: Inspection: normal to inspection and non-distended GI Palp: Yes abdominal tenderness, Yes Soft to palpation, Yes Tenderness to palpation present (GI), No Guarding due to palpation present (GI) and No Rigid due to palpation Skin: General skin exam: normal color and no rashes or lesions noted Neuro: General: patient oriented x3 and CN's II-XI intact bilaterally Extrem: General: normal to inspection and full
--- NOTE | 2023-05-25 12:26 | WPDHPUPDATE1 ---
History and Physical Update Update Date/Time: 05/25/23 12:26 History and Physical has been reviewed, including an updated exam of the patient. There are NO changes in the patient's condition. Risks, benefits, and alternatives have been discussed and questions answered. Patient agrees to proceed with procedure.
--- NOTE | 2023-05-25 13:12 | PC.NURSE ---
to OR per stretcher
--- NOTE | 2023-05-25 13:48 | WPDANESEPPF ---
Anes - Initial Pre Proc Eval Procedure: Operation Date: 05/25/23 14:30 Proposed Procedures p Laparoscopic Appendectomy; Possible Open - Amie Bowden MD Date/Time: 05/25/23 13:48 Surgeon: Amie Bowden MD Pre Op Diagnosis: Acute Appendicitis Patient Data Age: 28 Gender: F Height: 1.6 m Weight: 71.8 kg Last Vital Signs Temp 36.4 C 05/25/23 05:46 Pulse 70 05/25/23 09:29 Resp 14 05/25/23 05:46 BP 113/63 05/25/23 05:46 Pulse Ox 99 05/25/23 09:29 O2 Del Method Room Air 05/25/23 09:29 Allergies Allergy/AdvReac Type Severity Reaction Status Date / Time metoclopramide [From Reglan] Allergy Severe Other Verified 05/24/23 12:38 Home Medications Medication Instructions Recorded Confirmed Type ferrous sulfate 325 mg (65 mg 325 mg PO DAILY 11/28/22 05/25/23 History iron) tablet cetirizine 10 mg capsule (Zyrtec) 10 mg PO DAILY PRN Allergy Symptoms 02/17/23 05/25/23 History Laboratory Tests 05/24/23 13:23 Urine Color Yellow (Yellow) Urine Appearance Clear (Clear) Urine pH 5.5 (5.0-9.0) Ur Specific [place] 1.023 (1.001-1.035) Urine Protein Negative mg/dL (Negative) Urine Glucose (UA) Negative mg/dL (Negative) Urine Ketones Negative mg/dL (Negative) Ur Blood (Man) Negative (Negative) Urine Nitrate Negative (Negative) Urine Bilirubin Negative (Negative) Urine Urobilinogen 0.2 mg/dL (<2.0) Add Ur Microanalysis Reviewed Leukocyte Esterase Rfl 1+ H MANDEEP/UL (Negative) Urine RBC 0-2 /hpf (0-2) Urine WBC 0-5 /hpf Ur Squamous Epith Cells Few /hpf (Few) Urine Bacteria Rare /hpf Urine Casts 0-2 Patient hx anesthesia problems: none Family hx anesthesia problems: none Results Review: All pre-operative results and documents have been reviewed as part of the pre-operative evaluation. PMFSH Past Medical History Medical History Herpes simplex virus (HSV) type I or type II DNA not detected by PCR Surgical History Surgical History Delivery by section (05/07/20) primary c/s Delivery by section (01/27/23) rpt c/s Family History Family History Other Unknown family medical history Social History Social History Smoking status: Never smoker Second hand tobacco smoke exposure: No Alcohol intake: never Substance use: never Substance use type: does not use Lack of Transportation: No Lack of Food: Never True Current Housing: I Have Housing Concerned About Future Housing: No Difficulty Paying Gas/Electric Bills: No Difficulty Paying for Meds: No Currently Unemployed: No Education: High School Diploma/GED Difficulty w/ Childcare or Family Care: No Living arrangements: with family Additional living arrangements comments: single 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 Gender identity (if verbalized by the patient): Female Sexual Orientation (if Verbalized by the Patient): Straight or Heterosexual Spiritual care concerns: No Anes - Eval Final PreProcedure Day of Procedure 05/25/23 13:48 Patient weight: overweight Heart: regular rate and rhythm Lungs: clear to auscultation Airway: Mallampati scale class II Neurological: alert and oriented Last oral intake: >/= 8 hours ASA classification: II Emergent: no Anesthetic plan: proceed Anesthesia type and monitoring: general ETT and standard monitoring Results Review: All pre-operative results and documents have been reviewed as part of the pre-operative evaluation. Informed Consent: The patient's anesthetic plan and its attendant risks and benefits were discussed with the patient/family/P
--- NOTE | 2023-05-25 16:20 | W.PM.PROC2 ---
Procedure Note - Detailed Date of Procedure 05/25/23 Pre-op Diagnosis Acute Appendicitis Post-op Diagnosis Same Procedure Performed laparoscopic appendectomy Surgeon Amie Bowden MD Anesthesia General Findings acute appendicitis no evidence of perforation Description of Procedure The patient was taken to the operating room and placed in the supine position. After adequate induction of general anesthesia, the patient was prepped and draped in the normal sterile fashion. A time-out was then done to verify the patient's identity, as well as the procedure being performed. I began by making a 5 mm incision in the infraumbilical region, through this a Veress needle was placed in the peritoneal cavity. CO2 gas was then insufflated and after adequate pneumoperitoneum was achieved the Veress needle was removed. Then placed a 5 mm Optiview trocar under direct visualization into the peritoneal cavity. I then insufflated through this trocar site and the endoscope was placed into the trocar. Under direct visualization, placed 2 further 5 mm suprapubic port as well as an additional 12 mm port in the left lower abdomen. At this point identified the cecum, I retracted the cecum both medially and superiorly allowing me to expose the appendix. The appendix was noted to be mildly dilated and inflamed especially towards the tip. The appendix was noted to be very adherent to the right lateral sidewall as well as the ileum. I was able to bluntly dissect the appendix from these adhesions. I then was able to locate the base of the appendix with the cecum. I created a window with the [place] dissector between the appendix itself and the mesoappendix. I then transected the mesoappendix with a white vascular staple load. The Endo-ZHANE was then reloaded with a blue staple load and I transected the base of the appendix. Once the specimen was completely detached, an endo-pouch was placed into the 12 mm port site and the specimen was removed through the endo-pouch. The appendiceal specimen will be sent to pathology for further review. I then copiously irrigated the right lower quadrant. Hemostasis was noted at both staple lines no other pathology was seen in this area. I then moved the camera to the suprapubic port to check our its port of entry. No iatrogenic injury or other pathology was noted in the upper abdomen. I then closed the 12 mm port site with a Fernando code and 0 Vicryl suture under direct visualization. At this point, the abdomen was desufflated and all ports were removed. All port sites were closed with 4 Monocryl subcuticular suture. Dermabond was placed on all wounds. The patient tolerated the procedure well and was extubated in the operating room postop. She will be sent to the recovery room in stable condition. Estimated Blood Loss 10 Drains No Packing No Pathology Yes Complications No immediate complications Condition Stable Disposition PACU [facility] Billing Surgery - Charge Forward: Surgery Billing
[2023-05-25] MEDS: LACTATED RINGERS 1,000 ML 30 ML IV CONT ×2 (16:24→16:59)
[2023-05-25] MEDS: fentaNYL CITRATE INJ (*CRX) 100 MCG/2 ML VIAL 25 MCG IV PUSH ×6 (16:43→17:18)
--- NOTE | 2023-05-25 17:37 | PC.NURSE ---
patient returning to room from surgery. family with patient
[2023-05-25] MEDS: ONDANSETRON INJ 4 MG/2 ML VIAL IV PUSH (17:48)
[2023-05-26] VITALS: BP 113/78; PULSE 70; RESP 166; TEMP 36.1; O2SAT 99
[2023-05-26 04:01] VITALS: BP 119/74; PULSE 59; RESP 16; TEMP 35.8; O2SAT 100
[2023-05-26] MEDS: ACETAMINOPHEN 325 MG TABLET 650 MG PO (05:23)
[2023-05-26] MEDS: HYDROcodone/acetaminophen (*CRX) 7.5-325 MG TABLET 1 TAB PO (08:34)
[2023-05-26 08:39] VITALS: BP 125/79; PULSE 64; RESP 16; TEMP 35.8; O2SAT 99
--- NOTE | 2023-05-26 09:16 | PM.DS ---
DS: Admitting Diagnosis Discharge Date 05/26/2023 Admitting Diagnosis Acute appendicitis DS: Discharge Diagnosis Discharge Diagnosis (1) Acute appendicitis: Code(s): K35.80 - Unspecified acute appendicitis Status: Acute Assessment and Plan: status post appendectomy, continue routine postoperative care, path pending, home with p.o. analgesia, follow-up 2 weeks DS: Summary Hospital Course Reason for hospitalization: acute appendicitis Hospital Course: The patient is a 28-year-old female presenting to the emergency department complaining of right lower quadrant, right flank pain. Workup in the emergency department, including imaging, was significant for mild early appendicitis. Given these findings, the patient was admitted to the surgical service and started on IV antibiotics. Upon evaluation, it was decided the patient undergo urgent appendectomy. The patient was taken to the operating room and laparoscopic appendectomy was performed. Please see full operative report for details of that procedure. Postoperatively, the patient did well was transferred back to the surgical floor. On postoperative day 1. , the patient reports that she is feeling well other than some mild incisional pain. The patient has been getting up without difficulty and has been able to tolerate a bland diet. She will be discharged at this time with p.o. analgesia and Colace. She will follow-up with me in 2 weeks. Status at Discharge Functional status at discharge: independent ambulation Overall status at discharge: patient is progressing back to baseline Time Spent with Patient Time attestation: Total time spent providing and/or coordinating discharge services: Time spent: Less than 30 minutes Exam Const: General: cooperative, comfortable and no acute distress GI: Inspection: normal to inspection and incision GI Palp: Yes abdominal tenderness, Yes Soft to palpation and Yes Tenderness to palpation present (GI) DS: Data Data Completed and Pending Pending studies at discharge: Pending at discharge 05/25/23 16:05 Surgical [PTH] Routine Discharge Plan Discharge Attending physician on discharge: Amie Bowden Discharging Clinician: Amie Bowden Anticipated Discharge Date/Time: 05/25/23 19:00 Patient Disposition: Home, Self-Care Activity: may shower and other - see discharge instructions Diet: as tolerated Wound Care Instructions: other - see discharge instructions Discharge Instructions: DISCHARGE INSTRUCTION SHEET FOR HERNIA, GALLBLADDER AND APPENDIX SURGERIES DR. BOWDEN PATIENT TO TAKE HOME 1. May shower in 24 hours, no soaking in bath x 2weeks. 2. Call office for: Wound increasingly painful or bleeding Vomiting Fever of greater than 101 degrees 3. If no bowel movement for three days, take 1 oz. (30 ml) Milk of Magnesia or MiraLax 17g 1 to 2 times daily. 4. No heavy lifting > 10-15 pounds x 6 weeks for hernia repairs and 2 weeks for laparoscopic cholecystectomy or appendectomy. 5. No driving for 3 days or while taking narcotic pain medications. 6. Ice to surgical site for 48 hours (30 min on, then 30 min off). 7. Up walking 10-30 minutes three times per day. 8. Resume previous home medications. 9. Follow-up 10-14 days in office for wound check or as previously scheduled. ([id number]) 10. Oral pain medications prescription to be sent to pharmacy. Take Tylenol 500mg every 6 hours and Ibuprofen 600mg every 6 hours for the first 2 days, then as needed. 11. NUTRITION: Start out by drinking fluids and increase your diet as tolerated. If you experience nausea, try dry toast, crackers, and 7-UP. If nausea or vomiting persists, contact your surgeon?s office. 12. Gallbladders-Low Fat Diet for 2 weeks (send care note of low fat diet) 13. Inguinal Hernias-wear scrotal support for 48 hours 14. Abdominal Hernias-if sent
== END 2023-05-26 09:20 | disposition home or self-care (01) ==
LOC: ANHED 15:38 → ANH3MEDSUR 17:55
PROVIDERS: Emergency Medicine; Admitting Provider Surgery; Emergency Provider Physician Assistant; PCP Family Medicine; Visit Provider Surgery
PROC: 0DTJ4ZZ Resection of Appendix, Percutaneous Endoscopic Approach (ICD-10-PCS; CPT 44970; principal; 2023-05-25 14:30)
DX: K35.80 Unspecified acute appendicitis (principal); K20.90 Esophagitis, unspecified without bleeding; K29.70 Gastritis, unspecified, without bleeding; R63.0 Anorexia; Z68.28 Body mass index [BMI] 28.0-28.9, adult; B00.9 Herpesviral infection, unspecified; Z79.899 Other long term (current) drug therapy
CPT/HCPCS: 44970; 36415; 74177; 80053; 81001; 81025; 83690; 85025; 88304; 96361; 96365; 96366; 96375; 96376; 99285; A9270; G0378; G0379; J1100; J1170; J1885; J2060; J2250; J2270; J2405; J2543; J2704; J2710; J3010; J7030; J7120; Q9967

== ENCOUNTER 2023-07-01 12:57 | Emergency (ER) | payer OTHER, SELFPAY ==
--- NOTE | ~2023-07-01 | CT_ITS ---
EXAMINATION: CT abdomen pelvis w con DATE: 07/01/2023 17:08 INDICATION: RLQ Abdominal pain TECHNIQUE: Computed tomography (CT) of the abdomen and pelvis was performed with 100 mL Omnipaque-350 intravenous contrast. Automated exposure control and iterative reconstruction technique were employe d. The dose-length product was 313.08 mGy-cm. COMPARISON: 05/24/2023. FINDINGS: Lower thorax: Unremarkable Liver: Normal. Biliary/Gallbladder: Gallbladder is normal. No bile duct dilation. Pancreas: No mass or duct dilation. Spleen: Normal. Adrenals:No mass. Kidneys: No mass, stone, or hydronephrosis. GI tract: Mild distal esophageal and gastric wall edema. No small or large bowel dilation. Status pos t appendectomy. Mesentery/Peritoneum: No ascites, mass, or free air. Retroperitoneum: No mass. Pelvis: Decompressed urinary bladder with mild wall thickening. Retroverted uterus. Normal bilateral ovaries. Soft Tissues: Soft tissues and body wall unremarkable. Bones: No acute osseous finding. IMPRESSION: Mild esophagitis/gastritis. Mild urinary bladder wall thickening may be secondary to incomplete distention or cystitis. Reviewed, dictated and finalized at [facility].
[2023-07-01 12:59] VITALS: BP 125/78; PULSE 87; RESP 20; TEMP 36.6; O2SAT 99
[2023-07-01 13:27] LABS: Basophils Percent Auto 0.4 % (0.2-1.2); Eosinophils Percent Auto 0.3 % (0-4.4); Hematocrit 43.1 % (37.0-47.0); Hemoglobin 14.7 g/dL (12.0-15.0); Immature Granulocyte Absolute 0.02 K/mm3 (0.00-0.031); Immature Granulocyte Percent A 0.2 % (0-0.5); Lymphocytes Absolute Auto 1.77 K/mm3 (0.9-3.2); Lymphocytes Percent Auto 19.5 % (18.3-44.2); Mean Corpuscular HGB Conc 34.1 g/dl (32-36); Mean Corpuscular Hemoglobin 28.8 pg (26-34); Mean Corpuscular Volume 84.3 fl (80-100); Monocytes Absolute Auto 0.4 K/mm3 (0.1-0.6); Monocytes Percent Auto 4.6 % (2.6-8.5); Neutrophils Absolute Auto 6.8 K/mm3 (1.3-6.7); Platelet Count Result 261 k/mm3 (150-375); Red Blood Count 5.11 M/mm3 (4.2-5.4); Red Cell Distribution Width 12.6 % (11.5-14.5); White Blood Count 9.1 K/mm3 (4.5-10.0)
[2023-07-01 13:42] LABS: Alanine Aminotransferase 25 U/L (6-35); Albumin Level 5.3 g/dL (3.5-5.1); Alkaline Phosphatase 100 U/L (38-126); Anion Gap 11 mmol/L (8-16); Aspartate Amino Transferase 31 U/L (14-36); Bilirubin,Total 0.5 mg/dL (0.2-1.3); Blood Urea Nitrogen 16 mg/dL (7-17); Calcium 9.7 mg/dL (8.4-10.2); Carbon Dioxide 23 mmol/L (22-30); Chloride 103 mmol/L (98-107); Estimated CRCL calculation 115 ml/min; Estimated Glomerular Filt Rate > 60; Glucose 94 mg/dL (65-110); Lipase 43 U/L (23-300); Potassium 3.8 mmol/L (3.4-5.0); Sodium 137 mmol/L (137-145)
[2023-07-01 14:36] LABS: Appearance Urine Clear (Clear); Bacteria Urine None Seen /hpf; Bilirubin Urine Negative (Negative); Blood Urine 2+ (Negative); Color Urine Yellow (Yellow); Glucose Urine UA Negative (Negative); Ketones Urine Negative (Negative); Leukocyte Esterase Ur Negative LEU/UL (Negative); Nitrate Urine Negative (Negative); Non Pathogenic Casts 0-2; Protein Urine Negative (Negative); Specific Grav Ur 1.021 (1.001-1.035); Squamous Epithelial Cell Urine Occasional /hpf (Few); Urobilinogen Urine 0.2 mg/dL (<2.0); WBC Urine 0-5 /hpf
[2023-07-01 14:41] LABS: Add Urine Microscopic? YES
[2023-07-01 16:00] VITALS: BP 124/76; PULSE 80; RESP 16; O2SAT 98
[2023-07-01 16:44] LABS: Pregnancy On Board Control Positive; Urine Pregnancy Test Negative
--- NOTE | 2023-07-01 16:57 | ED.ABDPAIN ---
HPI - Abdominal Pain General Chief Complaint: Abdominal Pain Stated Complaint: right abd pain Time Seen by Provider: 07/01/23 15:34 History of Present Illness HPI narrative: This is a 28-year-old female, with recent history of appendectomy approximately 1 month ago, who presents to the emergency department complaining of intermittent right lower quadrant abdominal pain, described as sore and sharp, rated 3/10. The patient states her pain is aggravated by movement, occasionally at increases to 6/10. She discussed this with her surgeon and has begun discussions with GI. She denies nausea, vomiting or bleeding from any source. Related Data Home Medications Medication Instructions Recorded Confirmed ferrous sulfate 325 mg (65 mg 325 mg PO DAILY 11/28/22 06/12/23 iron) tablet Allergies Allergy/AdvReac Type Severity Reaction Status Date / Time metoclopramide [From Reglan] Allergy Severe Other Verified 06/12/23 09:57 Review of Systems Review of Systems: CONSTITUTIONAL: Denies fever, chills, or sweats. CARDIOVASCULAR: Denies chest pain, palpitations, or edema. RESPIRATORY: Denies cough or dyspnea. GASTROINTESTINAL: Right lower quadrant abdominal pain denies nausea, vomiting, or diarrhea. GENITOURINARY: Denies dysuria or hematuria. SKIN: Denies rash or itching. MUSCULOSKELETAL: Denies back pain, joint pain, or myalgia. NEUROLOGIC: Denies headache, numbness, dizziness, or weakness. PSYCHIATRIC: Denies anxiety or depression. 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 Bowden. Family History Family History Other Unknown family medical history Social History Social History Smoking status: Never smoker Second hand tobacco smoke exposure: No Alcohol intake: never Substance use: never Substance use type: does not use Lack of Transportation: No Lack of Food: Never True Current Housing: I Have Housing Concerned About Future Housing: No Difficulty Paying Gas/Electric Bills: No Difficulty Paying for Meds: No Currently Unemployed: No Education: High School Diploma/GED Difficulty w/ Childcare or Family Care: No Living arrangements: with family Additional living arrangements comments: single 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 HEAD: Normocephalic, atraumatic. EYES: PERRLA and EOMI. CHEST: Clear to auscultation. No respiratory distress. No wheezes rales or rhonchi HEART: Regular rate and rhythm. No murmur heard. Normal peripheral pulses. ABDOMEN: Soft, nontender, nondistended, normal active bowel sounds. EXTREMITIES: Normal range of motion. No edema. SKIN: Warm, dry, no rash. NEURO: Alert and oriented x3. Moving all 4 limbs purposefully. PSYCH: Normal mood and affect. Course Course Emergency Course: 18:15 - CBC unremarkable. Chemistry is unremarkable. The patient's urinalysis demonstrates hematuria, I suspect this is related to her active menses and is otherwise not concerning for UTI. CT abdomen pelvis demonstrates changes consistent with gastritis but is not concerning for acute intra-abdominal process. I suspect the patient's pain is related to expected postoper
[2023-07-01 17:00] VITALS: BP 124/76; PULSE 80; RESP 16; O2SAT 99
[2023-07-01 18:00] VITALS: BP 124/78; PULSE 80; RESP 16; O2SAT 99
[2023-07-01 19:00] VITALS: BP 122/82; PULSE 82; RESP 16; O2SAT 99
== END 2023-07-01 19:00 | disposition home or self-care (01) ==
PROVIDERS: Emergency Medicine; Emergency Provider Preventive Medicine Aerospace Medicine; PCP Family Medicine
DX: R10.31 Right lower quadrant pain (principal); K29.70 Gastritis, unspecified, without bleeding; K20.90 Esophagitis, unspecified without bleeding; R93.41 Abnormal radiologic findings on diagnostic imaging of renal pelvis, ureter, or bladder
CPT/HCPCS: 36415; 74177; 80053; 81001; 81025; 83690; 85025; 99284; Q9967

== ENCOUNTER 2023-07-09 19:34 | Emergency (ER) | payer OTHER, SELFPAY ==
[2023-07-09 19:44] VITALS: BP 136/84; PULSE 82; RESP 16; TEMP 37.3; O2SAT 100
--- NOTE | 2023-07-09 19:48 | ED.SKABFB ---
HPI - Skin/Abscess/Foreign Bdy General Chief complaint: Skin/Abscess/Foreign Body Stated complaint: irritated area on skin Time Seen by Provider: 07/09/23 19:36 Source: patient Mode of arrival: ambulatory Limitations: no limitations History of Present Illness HPI narrative: patient is a 28-year-old female that presents with redness, pain and drainage from wound in her perineum. Patient states she shaved on Thursday prior to OB appointment. Since then the area has become more tender. Yesterday patient squeezed drainage from wound and took a hot bath allowing for more drainage to express. Patient reports the tenderness has improved but it is still warm to touch, red. denies any difficulty urinating, pain in vagina or rectum, fevers, nausea, vomiting, diarrhea. Patient has reported mild chills yesterday. patient has been putting antibiotic ointment on wound. Related Data Home Medications Medication Instructions Recorded Confirmed ferrous sulfate 325 mg (65 mg 325 mg PO DAILY 11/28/22 07/03/23 iron) tablet Allergies Allergy/AdvReac Type Severity Reaction Status Date / Time metoclopramide [From Reglan] Allergy Severe Other Verified 07/06/23 09:41 Review of Systems Review of Systems: All systems reviewed & are unremarkable except as noted in HPI and below Constitutional: Constitutional: Denies body ache(s), Denies chills, Denies fatigue, Denies fever(s), Denies headache(s), Denies malaise and Denies weakness Eyes: Eyes: Denies blurry vision, Denies irritation and Denies loss of vision ENT: Denies otalgia, Denies headache(s), Denies nasal discharge, Denies sinus pain and Denies sore throat Cardiovascular: Cardiovascular: Denies chest pain, Denies irregular heart rhythm and Denies dyspnea Respiratory: Respiratory: Denies dyspnea Gastrointestinal: Gastrointestinal: Denies abdominal pain, Denies melena, Denies hematochezia, Denies diarrhea, Denies nausea and Denies vomiting Musculoskeletal: Musculoskeletal: Denies back pain, Denies myalgias and Denies arthralgias Integumentary/Breasts: Skin/Breast: Denies pruritus, Denies rash, Reports skin pain, Reports skin swelling and Reports sores Neurologic: Denies headache(s), Denies loss of vision and Denies weakness Psychiatric: Psychiatric: Reports no additional psychiatric complaints Endocrine: Endocrine: Denies fatigue PMF Past Medical History Medical History Herpes simplex virus (HSV) type I or type II DNA not detected by PCR Surgical History Surgical History Delivery by section (05/07/20) primary c/s Delivery by section (01/27/23) rpt c/s History of laparoscopic appendectomy Laparoscopic appendectomy 05/25/[address] Bowden. Family History Family History Other Unknown family medical history Social History Social History Smoking status: Never smoker Second hand tobacco smoke exposure: No Alcohol intake: never Substance use: never Substance use type: does not use Lack of Transportation: No Lack of Food: Never True Current Housing: I Have Housing Concerned About Future Housing: No Difficulty Paying Gas/Electric Bills: No Difficulty Paying for Meds: No Currently Unemployed: No Education: High School Diploma/GED Difficulty w/ Childcare or Family Care: No Living arrangements: with family Additional living arrangements comments: single 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
== END 2023-07-09 20:33 | disposition home or self-care (01) ==
PROVIDERS: Emergency Provider Nurse Practitioner Family; PCP Family Medicine
DX: L03.317 Cellulitis of buttock (principal)
CPT/HCPCS: 99213; G0463

== ENCOUNTER 2023-07-10 00:15 | Emergency (ER) | payer OTHER, SELFPAY ==
[2023-07-10 00:23] VITALS: BP 129/73; PULSE 125; RESP 16; TEMP 36.9; O2SAT 99
== END 2023-07-10 03:11 | disposition home or self-care (01) ==
LOC: ANHED 00:52
PROVIDERS: Emergency Provider Physician Assistant; PCP Family Medicine
DX: L02.214 Cutaneous abscess of groin (principal)
CPT/HCPCS: 10060; 87070; 87147; 87181; 87186; 87205; 99283

== ENCOUNTER 2023-07-15 15:00 | Emergency (ER) | payer OTHER, SELFPAY ==
--- NOTE | ~2023-07-15 | CT_ITS ---
EXAMINATION: CT abdomen pelvis w con DATE: 07/15/2023 19:31 INDICATION: Left abdominal pain TECHNIQUE: Computed tomography (CT) of the abdomen and pelvis was performed with 100 CC Omnipaque 350 intravenous contrast. Automated exposure control and iterative reconstruction technique were employe d. Exam dose: 313.16 mGy-cm total exam DLP. COMPARISON: 07/01/2023 CT abdomen pelvis FINDINGS: The lung bases are clear. Normal heart size. No pericardial or pleural effusion. The liver, gallbladder, bile ducts, pancreas, pancreatic duct and spleen appear unremarkable. Normal morphology of the adrenal glands. No renal mass lesion or urinary tract calculus or hydroureteronephrosis is evident. Normal caliber of the abdominal aorta. No intraperitoneal or retroperitoneal or pelvic mass lesion or adenopathy or ascites. Status post appendectomy. Approximately 2 cm right ovarian corpus luteum cyst. The uterus, adnexal areas and urinary bladder ot herwise appear unremarkable. No bowel obstruction, bowel wall thickening, pneumatosis or intraperitoneal free air. Small fat-containing umbilical hernia. IMPRESSION: Approximately 2 centimeter right ovarian corpus luteum cyst Status post appendectomy Reviewed, dictated and finalized at [facility]. Reviewed, dictated and finalized at [facility].
[2023-07-15 15:21] VITALS: BP 138/90; PULSE 85; RESP 18; TEMP 36.8; O2SAT 100
[2023-07-15 17:02] LABS: Basophils Absolute Auto 0.1 K/mm3 (0.0-0.1); Basophils Percent Auto 0.5 % (0.2-1.2); Eosinophils Percent Auto 0.3 % (0-4.4); Hematocrit 46.3 % (37.0-47.0); Hemoglobin 15.3 g/dL (12.0-15.0); Immature Granulocyte Absolute 0.03 K/mm3 (0.00-0.031); Immature Granulocyte Percent A 0.3 % (0-0.5); Lymphocytes Absolute Auto 1.94 K/mm3 (0.9-3.2); Lymphocytes Percent Auto 20.6 % (18.3-44.2); Mean Corpuscular Hemoglobin 27.8 pg (26-34); Mean Corpuscular Volume 84.2 fl (80-100); Mean Platelet Volume 8.9 fl (7.4-10.4); Monocytes Absolute Auto 0.5 K/mm3 (0.1-0.6); Monocytes Percent Auto 4.8 % (2.6-8.5); Neutrophils Absolute Auto 6.9 K/mm3 (1.3-6.7); Neutrophils Percent Auto 73.5 % (45.5-73.1); Platelet Count Result 322 k/mm3 (150-375); Red Cell Distribution Width 12.4 % (11.5-14.5); White Blood Count 9.4 K/mm3 (4.5-10.0)
[2023-07-15 17:10] LABS: Alanine Aminotransferase 21 U/L (6-35); Albumin Level 5.3 g/dL (3.5-5.1); Alkaline Phosphatase 97 U/L (38-126); Anion Gap 17 mmol/L (8-16); Aspartate Amino Transferase 24 U/L (14-36); Bilirubin,Total 0.5 mg/dL (0.2-1.3); Blood Urea Nitrogen 11 mg/dL (7-17); Calcium 10.3 mg/dL (8.4-10.2); Carbon Dioxide 19 mmol/L (22-30); Chloride 101 mmol/L (98-107); Estimated CRCL calculation 75 ml/min; Estimated Glomerular Filt Rate > 60; Glucose 89 mg/dL (65-110); Lipase 49 U/L (23-300); Sodium 137 mmol/L (137-145)
[2023-07-15 17:12] LABS: Appearance Urine Clear (Clear); Bilirubin Urine Negative (Negative); Blood Urine Negative (Negative); Color Urine Yellow (Yellow); Glucose Urine UA Negative (Negative); Ketones Urine Trace mg/dL (Negative); Leukocyte Esterase Ur Negative LEU/UL (Negative); Nitrate Urine Negative (Negative); Protein Urine Negative (Negative); Specific Grav Ur 1.011 (1.001-1.035); Urobilinogen Urine 0.2 mg/dL (<2.0)
[2023-07-15 17:17] LABS: Add Urine Microscopic? NO
[2023-07-15 17:44] VITALS: BP 128/94; PULSE 73; RESP 18; O2SAT 100
--- NOTE | 2023-07-15 18:14 | ED.ABDPAIN ---
HPI - Abdominal Pain General Chief Complaint: Abdominal Pain Stated Complaint: abd pain Time Seen by Provider: 07/15/23 17:41 Source: patient Mode of arrival: ambulatory Limitations: no limitations History of Present Illness HPI narrative: This is a 28-year-old female that presents to the emergency department for left-sided abdominal pain. Ongoing over the last week. Reports intermittent sharp left sided abdominal pain. No known alleviating or exacerbating factors. Denies fever, vomiting, dysuria or hematuria. Related Data Allergies Allergy/AdvReac Type Severity Reaction Status Date / Time metoclopramide [From Reglan] Allergy Severe Other Verified 07/15/23 17:45 Review of Systems Review of Systems: CONSTITUTIONAL: Denies fever GASTROINTESTINAL: Reports abdominal pain. Denies nausea, vomiting, or diarrhea. GENITOURINARY: Denies dysuria or hematuria. 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 Bowden. Family History Family History Other Unknown family medical history Social History Social History Smoking status: Never smoker Second hand tobacco smoke exposure: No Alcohol intake: never Substance use: never Substance use type: does not use Lack of Transportation: No Lack of Food: Never True Current Housing: I Have Housing Concerned About Future Housing: No Difficulty Paying Gas/Electric Bills: No Difficulty Paying for Meds: No Currently Unemployed: No Education: High School Diploma/GED Difficulty w/ Childcare or Family Care: No Living arrangements: with family Additional living arrangements comments: single 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 HEAD: Normocephalic, atraumatic. EYES: EOMI. CHEST: Clear to auscultation. No respiratory distress. No wheezes rales or rhonchi HEART: Regular rate and rhythm. No murmur heard. Normal peripheral pulses. ABDOMEN: Soft, nondistended, normal active bowel sounds. Mild tenderness to palpation throughout the left side of the abdomen, without guarding. No CVA tenderness EXTREMITIES: Normal range of motion. No edema. SKIN: Warm, dry, no rash. NEURO: No focal deficits. Alert and oriented x3. PSYCH: Normal mood and affect Course Course Emergency Course: Patient was updated on workup and agrees with plan of care Vital Signs Vital signs: Vital Signs Temperature 98.3 F 07/15/23 15:21 Pulse Rate 85 07/15/23 15:21 Respiratory Rate 18 07/15/23 15:21 Blood Pressure 138/90 07/15/23 15:21 Pulse Oximetry 100 07/15/23 15:21 Oxygen Delivery Room Air 07/15/23 15:21 Temperature 98.3 F 07/15/23 15:21 Pulse Rate 73 07/15/23 17:44 Respiratory Rate 18 07/15/23 17:44 Blood Pressure 128/94 H 07/15/23 17:44 Pulse Oximetry 100 07/15/23 17:44 Oxygen Delivery Room Air 07/15/23 15:21 MDM - Abdominal Pain MDM Narrative Medical decision making narrative: Patient presents to the emergency department for left-sided abdominal pain. Ongoing over the last week. She is afebrile and nontoxic-appearing. Her vitals are stable. CBC is with
[2023-07-15] MEDS: SODIUM CHLORIDE 0.9% IV 500 ML 999 ML IV CONT (18:31)
[2023-07-15 19:00] LABS: Pregnancy On Board Control Positive; Urine Pregnancy Test Negative
[2023-07-15 20:39] VITALS: BP 111/78; PULSE 76; RESP 16; O2SAT 100
== END 2023-07-15 20:41 | disposition home or self-care (01) ==
PROVIDERS: Emergency Medicine; Emergency Provider Physician Assistant; PCP Family Medicine
DX: R10.9 Unspecified abdominal pain (principal); N83.11 Corpus luteum cyst of right ovary
CPT/HCPCS: 36415; 74177; 80053; 81003; 81025; 83690; 85025; 96360; 96361; 99284; J7040; Q9967

== ENCOUNTER 2023-09-15 00:11 | Day surgery (SDC) | payer OTHER, SELFPAY ==
[2023-09-04 15:54] VITALS: BMI 25.4
--- NOTE | 2023-09-11 14:51 | SUR.PREOP ---
Patient called regarding upcoming procedure. Reviewed preop instructions, appointment times, and procedure prep.
[2023-09-15 13:48] VITALS: BP 132/84; PULSE 102; RESP 16; TEMP 36.6; O2SAT 99; BMI 24.9
[2023-09-15] MEDS: LACTATED RINGERS 1,000 ML 150 ML IV CONT (13:57)
--- NOTE | 2023-09-15 14:00 | WPDANESEPPF ---
Anes - Initial Pre Proc Eval Procedure: Operation Date: 09/15/23 15:00 Proposed Procedures p Colonoscopy - Leo Talbert MD Date/Time: 09/15/23 14:00 Surgeon: Leo Talbert MD Pre Op Diagnosis: Right lower quadrant pain Patient Data Age: 28 Gender: F Height: 1.6 m Weight: 63.8 kg Last Vital Signs Temp 97.8 F 09/15/23 13:48 Pulse 102 H 09/15/23 13:48 Resp 16 09/15/23 13:48 BP 132/84 09/15/23 13:48 Pulse Ox 99 09/15/23 13:48 O2 Del Method Room Air 09/15/23 13:48 Allergies Allergy/AdvReac Type Severity Reaction Status Date / Time metoclopramide [From Reglan] Allergy Severe Other Verified 09/15/23 13:46 Home Medications Medication Instructions Recorded Confirmed Type norethindrone 1 mg-ethinyl 1 tablet PO DAILY #140 tabs 07/21/23 09/15/23 Rx estradiol 10 mcg (24)-iron 10 mcg(2) tablet (Lo Loestrin Fe) Patient hx anesthesia problems: none Family hx anesthesia problems: none Results Review: All pre-operative results and documents have been reviewed as part of the pre-operative evaluation. [facility] Past Medical History Medical History Herpes simplex virus (HSV) type I or type II DNA not detected by PCR Surgical History Surgical History Delivery by section (05/07/20) primary c/s Delivery by section (01/27/23) rpt c/s History of laparoscopic appendectomy Laparoscopic appendectomy 05/25/[address] Bowden. Family History Family History Other Unknown family medical history Social History Social History Smoking status: Never smoker Second hand tobacco smoke exposure: No Alcohol intake: never Substance use: never Substance use type: does not use Lack of Transportation: No Lack of Food: Never True Current Housing: I Have Housing Concerned About Future Housing: No Difficulty Paying Gas/Electric Bills: No Difficulty Paying for Meds: No Currently Unemployed: No Education: High School Diploma/GED Difficulty w/ Childcare or Family Care: No Living arrangements: with family Additional living arrangements comments: single 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 Gender identity (if verbalized by the patient): Female Sexual Orientation (if Verbalized by the Patient): Straight or Heterosexual Spiritual care concerns: No Anes - Eval Final PreProcedure Day of Procedure 09/15/23 14:00 Patient weight: normal Heart: regular rate and rhythm Lungs: clear to auscultation Airway: Mallampati scale class II Neurological: alert and oriented Last oral intake: >/= 8 hours ASA classification: II Emergent: no Anesthetic plan: proceed Anesthesia type and monitoring: general GIVS and standard monitoring Results Review: All pre-operative results and documents have been reviewed as part of the pre-operative evaluation. Informed Consent: The patient's anesthetic plan and its attendant risks and benefits were discussed with the patient/family/POA. Questions were solicited and answers provided to the satisfaction of the patient/family/POA.
--- NOTE | 2023-09-15 14:16 | PM.HPGS ---
History of Present Illness History of Present Illness Consent: Risks, benefits, and alternatives have been discussed and questions answered. Patient agrees to proceed with procedure. Chief complaint: Right lower quadrant pain Narrative: Bessy Orlando is a 28 year old female with lower abdominal pain since May, more often after appy CT scan no major findings, never had colonoscopy Review of Systems Constitutional: Constitutional: Denies headache(s) and Denies weakness Eyes: Eyes: Denies blurry vision ENT: Reports Normal hearing present, Denies headache(s) and Denies neck pain Cardiovascular: Cardiovascular: Denies chest pain and Denies dyspnea Respiratory: Respiratory: Denies dyspnea Gastrointestinal: Gastrointestinal: Reports no additional gastrointestinal complaints Genitourinary: Genitourinary: Denies dysuria Musculoskeletal: Musculoskeletal: Denies neck pain Integumentary/Breasts: Skin/Breast: Denies dry skin Neurologic: Reports Normal hearing present, Denies headache(s) and Denies weakness Psychiatric: Psychiatric: Denies anxiety Endocrine: Endocrine: Denies change in body appearance Hematologic/Lymphatic: Hematologic/Lymphatic: Denies easy bleeding Allergic/Immunologic: Allergic/Immunologic: Denies urticaria PMFSH Past Medical History Medical History (Updated 09/15/23 @ 14:17 by Leo Talbert MD) Herpes simplex virus (HSV) type I 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 Bowden. Family History Family History Other Unknown family medical history Social History Social History Smoking status: Never smoker Second hand tobacco smoke exposure: No Alcohol intake: never Substance use: never Substance use type: does not use Lack of Transportation: No Lack of Food: Never True Current Housing: I Have Housing Concerned About Future Housing: No Difficulty Paying Gas/Electric Bills: No Difficulty Paying for Meds: No Currently Unemployed: No Education: High School Diploma/GED Difficulty w/ Childcare or Family Care: No Living arrangements: with family Additional living arrangements comments: single 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 Gender identity (if verbalized by the patient): Female Sexual Orientation (if Verbalized by the Patient): Straight or Heterosexual Spiritual care concerns: No Meds Home Medications and Allergies Home Medications Medication Instructions Recorded Confirmed Type norethindrone 1 mg-ethinyl 1 tablet PO DAILY #140 tabs 07/21/23 09/15/23 Rx estradiol 10 mcg (24)-iron 10 mcg(2) tablet (Lo Loestrin Fe) Allergies Allergy/AdvReac Type Severity Reaction Status Date / Time metoclopramide [From Reglan] Allergy Severe Other Verified 09/15/23 13:46 Vital Signs Vital Signs - 24 hr 09/15/23 13:48 Temperature 97.8 F Pulse Rate 102 H Respiratory Rate 16 Blood Pressure 132/84 Pulse Oximetry 99 Oxygen Delivery Room Air Exam Const: General: comfortable and no acute distress HENMT: Face/Nose/Sinus: Normal nares present Eyes: General: appearance normal, both eyes and all related structures Neck: Neck: no JVD Resp: Auscultation: clear to auscultation bilaterally Cardio: Rate: regular rate Rhythm: regular rhythm GI: Inspection: non-distended GI Palp: Yes Soft to palpation Skin: General skin exam: normal color Neuro: General: gait normal Speech: normal speech Extrem: General: normal to inspection Psych: Mental Status: mental s
[2023-09-15 14:35] VITALS: BP 101/68; PULSE 94; RESP 22; O2SAT 97
[2023-09-15 14:45] VITALS: BP 120/74; PULSE 86; RESP 20; O2SAT 100
[2023-09-15 14:55] VITALS: BP 120/90; PULSE 76; RESP 20; O2SAT 100
== END 2023-09-15 15:07 | disposition home or self-care (01) ==
PROVIDERS: PCP Family Medicine; Visit Provider Internal Medicine Gastroenterology
PROC: 0DJD8ZZ Inspection of Lower Intestinal Tract, Via Natural or Artificial Opening Endoscopic (ICD-10-PCS; CPT 45378; principal; 2023-09-15 15:00)
DX: R10.30 Lower abdominal pain, unspecified (principal); K64.8 Other hemorrhoids
CPT/HCPCS: 45378; J2001; J2704; J7120

== ENCOUNTER 2024-01-21 19:39 | Emergency (ER) | payer OTHER, SELFPAY ==
--- NOTE | 2024-01-21 19:44 | ED.GENADULT ---
HPI - General Adult General Chief complaint: Arrhythmia/Palpitations Stated complaint: needs EKG heart fluttering Time Seen by Provider: 01/21/24 19:44 Source: patient, RN notes reviewed and old records reviewed Mode of arrival: ambulatory Limitations: no limitations History of Present Illness HPI narrative: 29-year-old female presents to the [facility] with concerns that her heart is fluttering. Patient states has been going on and off for about a year. Just prior to arrival had some palpitations, came here. Currently on exam patient denies any symptoms. Denies any nausea vomiting shortness of breath or chest pain. Reports that she had seen her primary care provider recently and had blood work. Discussed with patient that her primary is at [facility] we cannot see her lab results. Onset (ago): year(s) (About 1 year, intermittent) Treatments prior to arrival: none Related Data Allergies Allergy/AdvReac Type Severity Reaction Status Date / Time metoclopramide [From Reglan] Allergy Severe Other Verified 01/21/24 19:42 Review of Systems Review of Systems: All systems reviewed & are unremarkable except as noted in HPI and below Constitutional: Constitutional: Reports no additional constitutional complaints Eyes: Eyes: Reports no additional eye complaints ENT: Reports system reviewed and no additional complaints, except as documented Cardiovascular: Cardiovascular: Reports as per HPI, Denies chest pain, Denies chest pain at rest, Reports rapid heart rate, Denies pedal edema, Denies edema and Denies dyspnea Respiratory: Respiratory: Reports no additional respiratory complaints, Denies chest congestion, Denies cough and Denies dyspnea Gastrointestinal: Gastrointestinal: Reports no additional gastrointestinal complaints, Denies abdominal pain, Denies nausea and Denies vomiting Musculoskeletal: Musculoskeletal: Reports no additional musculoskeletal complaints Integumentary/Breasts: Skin/Breast: Reports system reviewed and no additional complaints, except as docu Neurologic: Reports system reviewed and no additional complaints, except as documented Psychiatric: Psychiatric: Reports no additional psychiatric complaints Allergic/Immunologic: Allergic/Immunologic: Reports no additional allergic/immunologic complaints PMFSH Past Medical History Medical History Herpes simplex virus (HSV) type I 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 Bowden. Family History Family History Other Unknown family medical history Social History Social History Smoking status: Never smoker Second hand tobacco smoke exposure: No Alcohol intake: never Substance use: never Substance use type: does not use Lack of Transportation: No Lack of Food: Never True Current Housing: I Have Housing Concerned About Future Housing: No Difficulty Paying Gas/Electric Bills: No Difficulty Paying for Meds: No Currently Unemployed: No Education: High School Diploma/GED Difficulty w/ Childcare or Family Care: No Living arrangements: with family Additional living arrangements comments: single 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 Ther
--- NOTE | 2024-01-21 19:45 | ECG_ITS ---
Measurements Intervals [place] Rate: 98 P: 41 WV: 151 QRS: 18 QRSD: 96 T: 30 QT: 348 QTc: 445 Interpretive Statements SINUS RHYTHM DELAYED PRECORDIAL R/S TRANSITION BORDERLINE ECG NO PREVIOUS ECG AVAILABLE FOR COMPARISON Electronically Signed On 01-22-2024 7:09:35 CDT by Rufus Gaytan D.O.
[2024-01-21 19:51] VITALS: BP 130/84; PULSE 99; RESP 16; TEMP 36.6; O2SAT 100
== END 2024-01-21 20:00 | disposition home or self-care (01) ==
PROVIDERS: Emergency Provider Nurse Practitioner; PCP Family Medicine
DX: R00.2 Palpitations (principal)
CPT/HCPCS: 93005; 99213; G0463

== ENCOUNTER 2024-09-05 08:59 | Emergency (ER) | payer OTHER, SELFPAY ==
[2024-09-05 09:09] VITALS: BP 126/78; PULSE 78; RESP 18; TEMP 36.7; O2SAT 100
--- NOTE | 2024-09-05 09:30 | ED.FEMALEGU ---
HPI - Female Genitourinary General Chief complaint: Urogenital-Female Stated complaint: urinary issue Time Seen by Provider: 09/05/24 09:18 Source: patient and RN notes reviewed Mode of arrival: ambulatory Limitations: no limitations History of Present Illness HPI Narrative: Patient presents today complaining of 3 day history of urinary frequency, urgency, and voiding small amounts. Yesterday she had some dysuria. She does report some external irritation as well as some discomfort after intercourse. Denies vaginal discharge. No treatment prior to arrival. Related Data Home Medications Medication Instructions Recorded Confirmed No Home Medications 09/05/24 09/05/24 Allergies Allergy/AdvReac Type Severity Reaction Status Date / Time metoclopramide [From Reglan] Allergy Severe Other Verified 09/05/24 09:25 Review of Systems Review of Systems: CONSTITUTIONAL: Denies body aches, fever, chills, or sweats. EYES: Denies visual changes, redness, or discharge. ENT: Denies rhinorrhea, congestion, sore throat, or otalgia. CARDIOVASCULAR: Denies chest pain, palpitations, or edema. RESPIRATORY: Denies cough or dyspnea. GASTROINTESTINAL: Denies abdominal pain, nausea, vomiting, or diarrhea. GENITOURINARY: + dysuria, frequency, urgency, vulvar irritation, pain after intercourse SKIN: Denies rash, itching, or wounds. MUSCULOSKELETAL: Denies back pain, joint pain, or myalgia. NEUROLOGIC: Denies headache, numbness, tingling, or weakness. PSYCH: Denies depression or anxiety. 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 Bowden. Family History Family History Other Unknown family medical history Social History Social History Smoking status: Never smoker Second hand tobacco smoke exposure: No Alcohol intake: never Substance use: current Substance use type: marijuana Lack of Transportation: No Lack of Food: Never True Current Housing: I Have Housing Concerned About Future Housing: No Difficulty Paying Gas/Electric Bills: No Difficulty Paying for Meds: No Currently Unemployed: No Education: High School Diploma/GED Difficulty w/ Childcare or Family Care: No Living arrangements: with family Additional living arrangements comments: single 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 Please see nursing chart for further information. There is no relevant family history pertinent to the presenting complaint Exam Narrative: GENERAL: Well-appearing, well-nourished, and in no acute distress. HEAD: Normocephalic, atraumatic. EYES: EOMI. No redness or drainage. Conjunctivae normal. ENT: Mucous membranes pink and moist. NECK: Normal AROM. CHEST: No respiratory distress. : exam deferred by patient. EXTREMITIES: Normal range of motion. No edema. SKIN: Warm, dry, no rash. Capillary refill normal. Normal skin turgor. NEURO: No focal deficits. Alert and oriented x3. Gait steady. PSYCH: Normal affect. No signs of depression or anxiety. Course Course Emergency Course: Pelvic exam deferred by patient, however, she was agreeable to self swab for gonorrhea, chlamydia, and Trichomonas after she was inquiring if symptoms could be related to sexually transmitted infections. She had already given a clean catch urine sample so swabbing will be more accurate than urine sample for these tests. Level of Care: Express Care Visit Vital Signs Vital signs: Vital Signs Temperature 98.1 F 09/05/24 09:09 Pulse Rate 78 09/05/24 09:09 Respiratory Rate 18 09/05/24 09:09 Blood Pressure 126/78 09/05/24 09:09 Pulse Oximetry 100 09/05/24 09:09 Oxygen Delivery Room Air 09/05/24 09:09 Temperature 98.1 F 09/05/24 09:09 Pulse Rate 78 09/05/24 09:09 Respiratory Rate 18 09/05/24 09:09 Blood Pressure 126/78 09/05/24 09:09 Pulse Oximetry 100 09/05/24 09:09 Oxygen Delivery Room Air 09/05/24 09:09 MDM - Female Genitourinary Differential Diagnosis Differential diagnosis: Likely urinary tract infection, vaginitis and other (Gonorrhea, chlamydia, Trichomonas) Medical Records Medical records narrative: Urine sample is not consistent with UTI. Will be sent for culture to confirm. Patient requesting STD testing and this will be sent over as well. She does decline prophylactic antibiotics. Anticipatory guidance given. Lab Data Attestation: I reviewed the patient's lab results. Labs: Lab Results 09/05/24 Range/Units 09:17 POC Urine Color Yellow POC Urine Clarity Clear POC Urine pH 6.0 POC Ur Specif [place] 1.030 POC Urine Protein Negative (Negative) POC Ur Glucose (UA) Negative (Negative) POC Urine Ketones Negative (Negative) POC Urine Blood Negative (Negative) POC Urine Nitrite Negative (Negative) POC Urine Bilirubin Negative (Negative) POC Urine Urobilinogen 0.2 POC U Leukocyte Esteras Negative (Negative) Critical Care Time Critical Care Time Critical Care Time: No Discharge Plan Discharge Clinical Impression: UTI symptoms Patient Disposition: Home, Self-Care Condition: Stable Additional Instructions: Your urine does not show infection today. T Your urine will be sent of for a culture to identify if there is any bacteria in your urine. If you need antibiotics based on this culture result you will be notified by telephone. Your vaginal swab has been sent to test for gonorrhea, chlamydia, and Trichomonas, and you will be notified of any positive results and treated accordingly. If your symptoms worsen to include fever, sweats, chills, nausea, vomiting, severe abdominal or back pain, please go to the ER for further evaluation. Your blood pressure was elevated above 120/80 today at Urgent Care. This puts you above the threshold for follow up. Please schedule a followup visit with your personal physician as soon as possible, for further evaluation and treatment. Even blood pressure exceeding 120/80 may indicate pre-hypertension. Prescriptions: No Action No Home Medications Follow-up/Referrals: Jaspreet,Tommy M., [employer] [employer] [facility] [Primary Care Provider] - Time of Disposition: 09:38
[2024-09-05 09:39] LABS: EDUAAPPEAR Clear; EDUABILI Negative (Negative); EDUABLOOD Negative (Negative); EDUACOLOR1 Yellow; EDUAGLUCOSE Negative (Negative); EDUAKETONE Negative (Negative); EDUALEUKO Negative (Negative); EDUANITRATE Negative (Negative); EDUAPROTEIN Negative (Negative); EDUAUROBILI 0.2
[2024-09-05 20:19] LABS: Trichomonas Vag PCR NOT DETECTED (NOT DETECTE)
[2024-09-05 20:44] LABS: Chlamydia trachomatis NOT DETECTED (NOT DETECTE); Neisseria gonorrhoeae PCR NOT DETECTED (NOT DETECTE)
== END 2024-09-05 09:43 | disposition home or self-care (01) ==
PROVIDERS: Emergency Provider Nurse Practitioner; PCP Nurse Practitioner Family
DX: R35.0 Frequency of micturition (principal); R39.15 Urgency of urination
CPT/HCPCS: 81003; 87086; 87491; 87591; 87661; 99213; G0463

== ENCOUNTER 2024-09-17 12:47 | Emergency (ER) | payer OTHER, SELFPAY ==
[2024-09-17 13:00] VITALS: BP 125/71; PULSE 93; RESP 20; TEMP 37.4; O2SAT 99
[2024-09-17 13:43] LABS: EDSTREPNEGPOS1 Positive (Negative)
[2024-09-17 13:49] LABS: EDCOVIDSCREEN Negative (Negative); EDINFLUASCREEN Negative (Negative); EDINFLUBSCREEN Negative (Negative)
--- NOTE | 2024-09-17 13:57 | ED.URI ---
HPI - URI/Sore Throat General Chief Complaint: Upper Respiratory Infection Stated Complaint: Sore Throat Time Seen by Provider: 09/17/24 13:42 Source: patient and RN notes reviewed Mode of arrival: ambulatory Limitations: no limitations History of Present Illness HPI Narrative: Patient presents today with a 2 day history of sore throat and nasal congestion. Denies cough, fever, or any additional symptoms. Currently rates her pain 8/10 and has been using Chloraseptic spray and tea without much relief. Two children with similar symptoms. No recent antibiotic use. Related Data Home Medications Medication Instructions Recorded Confirmed norethindrone 1 mg-ethinyl 1 tablet PO DAILY 09/17/24 09/17/24 estradiol 20 mcg (24)-iron 75 mg (4) tablet (Aurovela 24 Fe) Allergies Allergy/AdvReac Type Severity Reaction Status Date / Time metoclopramide [From Reglan] Allergy Severe Other Verified 09/17/24 12:49 Review of Systems Review of Systems: CONSTITUTIONAL: Denies body aches, fever, chills, or sweats. EYES: Denies visual changes, redness, or discharge. ENT: Denies rhinorrhea, or otalgia.+ congestion, sore throat CARDIOVASCULAR: Denies chest pain, palpitations, or edema. RESPIRATORY: Denies cough or dyspnea. GASTROINTESTINAL: Denies abdominal pain, nausea, vomiting, or diarrhea. GENITOURINARY: Denies dysuria or hematuria. SKIN: Denies rash, itching, or wounds. MUSCULOSKELETAL: Denies back pain, joint pain, or myalgia. NEUROLOGIC: Denies headache, numbness, tingling, or weakness. PSYCH: Denies depression or anxiety. 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 Bowden. Family History Family History Other Unknown family medical history Social History Social History Smoking status: Never smoker Second hand tobacco smoke exposure: No Alcohol intake: never Substance use: current Substance use type: marijuana Do You Feel Safe in your Home?: Yes Lack of Transportation: No Lack of Food: Never True Current Housing: I Have Housing Concerned About Future Housing: No Difficulty Paying Gas/Electric Bills: No Difficulty Paying for Meds: No Currently Unemployed: No Education: High School Diploma/GED Difficulty w/ Childcare or Family Care: No Living arrangements: with family Additional living arrangements comments: single 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 Please see nursing chart for further information. There is no relevant family history pertinent to the presenting complaint Exam Narrative: GENERAL: Well-appearing, well-nourished, and in no acute distress. HEAD: Normocephalic, atraumatic. EYES: EOMI. No redness or drainage. Conjunctivae normal. ENT: Mucous membranes pink and moist. Nares clear. No rhinorrhea. TMs normal bilaterally. Throat very mildly erythematous without edema or exudate. Uvula midline. NECK: Normal AROM. Supple. No lymphadenopathy. CHEST: No respiratory distress. Clear to auscultation. HEART: Regular rate and rhythm. No murmur appreciated. EXTREMITIES: Normal range of motion. No edema. SKIN: Warm, dry, no rash. Capillary refill normal. Normal skin turgor. NEURO: No focal deficits. Alert and oriented x3. Gait steady. PSYCH: Normal affect. No signs of depression or anxiety. Course Course Level of Care: Express Care Visit Vital Signs Vital signs: Vital Signs Temperature 99.4 F 09/17/24 13:00 Pulse Rate 93 09/17/24 13:00 Respiratory Rate 20 09/17/24 13:00 Blood Pressure 125/71 09/17/24 13:00 Pulse Oximetry 99 09/17/24 13:00 Oxygen Delivery Room Air 09/17/24 13:00 Temperature 99.4 F 09/17/24 13:00 Pulse Rate 93 09/17/24 13:00 Respiratory Rate 20 09/17/24 13:00 Blood Pressure 125/71 09/17/24 13:00 Pulse Oximetry 99 09/17/24 13:00 Oxygen Delivery Room Air 09/17/24 13:00 Reviewed MDM - URI/Sore Throat MDM Narrative Medical decision making narrative: Rapid strep positive. COVID and influenza negative. Prescription for amoxicillin sent to pharmacy. Anticipatory guidance given. Differential Diagnosis Differential diagnosis: Likely upper respiratory infection, viral infection, influenza, pharyngitis and other (Strep throat, COVID) Lab Data Attestation: I reviewed the patient's lab results. Labs: Lab Results 09/17/24 09/17/24 Range/Units 13:41 13:47 POC Influenza A Ag Negative (Negative) POC Influenza B Ag Negative (Negative) POC SARS CoV-2 Ag Negative (Negative) POC Grp A Strep Screen Positive (Negative) Critical Care Time Critical Care Time Critical Care Time: No Discharge Plan Discharge Clinical Impression: Strep throat Patient Disposition: Home, Self-Care Condition: Stable Instructions: Antibiotic Form, Strep Throat (DC) Additional Instructions: You tested positive for strep throat. Please take the amoxicillin as prescribed until gone. You will be contagious for 24 hours after starting the medication. Take Tylenol or Ibuprofen for pain or fever, if able. Rest and stay hydrated. Follow up with your PCP in 3 days if symptoms are not improving. Go to the ER immediately if you develop worsening symptoms such as shortness of breath, difficulty swallowing. Your blood pressure was elevated above 120/80 today at Urgent Care. This puts you above the threshold for follow up. Please schedule a followup visit with your personal physician as soon as possible, for further evaluation and treatment. Even blood pressure exceeding 120/80 may indicate pre-hypertension. Prescriptions: New amoxicillin 875 mg tablet 875 mg PO Q12H 10 Days Qty: 20 0RF No Action Aurovela 24 Fe 1 mg-20 mcg (24)/75 mg (4) tablet 1 tablet PO DAILY Follow-up/Referrals: Vogel,Tommy Rodriguez APRN [Primary Care Provider] - Stand Alone Forms: Work/School Release IP Time of Disposition: 14:00
== END 2024-09-17 14:25 | disposition home or self-care (01) ==
PROVIDERS: Emergency Provider Nurse Practitioner; PCP Nurse Practitioner Family
DX: J02.0 Streptococcal pharyngitis (principal); Z20.822 Contact with and (suspected) exposure to COVID-19; F12.90 Cannabis use, unspecified, uncomplicated
CPT/HCPCS: 87426; 87804; 87880; 99213; G0463

== ENCOUNTER 2024-10-01 10:00 | Emergency (ER) | payer OTHER, SELFPAY ==
[2024-10-01 10:07] VITALS: BP 122/64; PULSE 68; RESP 20; TEMP 37.1; O2SAT 100
[2024-10-01 10:37] LABS: EDSTREPNEGPOS1 Positive (Negative)
--- NOTE | 2024-10-01 10:50 | ED_ITS ---
HPI - URI/Sore Throat General Chief Complaint: Upper Respiratory Infection Stated Complaint: Sore Throat Time Seen by Provider: 10/01/24 10:50 Source: patient, RN notes reviewed and old records reviewed Mode of arrival: ambulatory Limitations: no limitations History of Present Illness HPI Narrative: Patient presents with complaints of sore throat for 1-2 days. She was recently treated for strep throat, admits that she did not take her medication as prescribed. She denies any fever, chills, sweats. She denies any injury or trauma. She reports pain is worse with swallowing. She voices no other concerns or complaints today. She is in no distress, no drooling or stridor Related Data Home Medications Medication Instructions Recorded Confirmed norethindrone 1 mg-ethinyl 1 tablet PO DAILY 09/17/24 10/01/24 estradiol 20 mcg (24)-iron 75 mg (4) tablet (Aurovela 24 Fe) Allergies Allergy/AdvReac Type Severity Reaction Status Date / Time metoclopramide [From Reglan] Allergy Severe Other Verified 10/01/24 10:12 Review of Systems Review of Systems: All systems reviewed & are unremarkable except as noted in HPI and below Constitutional: Constitutional: Reports no additional constitutional complaints ENT: Reports system reviewed and no additional complaints, except as documented and Reports sore throat Cardiovascular: Cardiovascular: Reports no additional cardiovascular complaints Respiratory: Respiratory: Reports no additional respiratory complaints Gastrointestinal: Gastrointestinal: Reports no additional gastrointestinal complaints [facility] Past Medical History Medical History Anxiety Herpes simplex virus (HSV) type I or type II DNA not detected by PCR Lower abdominal pain Surgical History Surgical History Delivery by section (05/07/20) primary c/s Delivery by section (01/27/23) rpt c/s H/O colonoscopy History of appendectomy History of laparoscopic appendectomy Laparoscopic appendectomy 05/25/[address] Bowden. Family History Family History Other Unknown family medical history Social History Social History Smoking status: Never smoker Second hand tobacco smoke exposure: No Alcohol intake: never Substance use: current Substance use type: marijuana Do You Feel Safe in your Home?: Yes Lack of Transportation: No Lack of Food: Never True Current Housing: I Have Housing Concerned About Future Housing: No Difficulty Paying Gas/Electric Bills: No Difficulty Paying for Meds: No Currently Unemployed: No Education: High School Diploma/GED Difficulty w/ Childcare or Family Care: No Living arrangements: with family Additional living arrangements comments: single 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 There is no relevant family history pertinent to the patient complaint. Exam Const: General: cooperative, no acute distress, alert and awake Orientation/consciousness: oriented to person, oriented to place and oriented to time HENMT: Head: normal to inspection Ears: TM's normal bilaterally Mouth: Yes moist mucous membranes Throat: abnormal tonsil bilateral erythema, exudates, hypertrophy 2+ and other (stones) Resp: Effort & Inspection: normal respiratory effort and able to speak in complete sentences Auscultation: clear to auscultation bilaterally, no crackles, no rales, no rhonchi and no wheezes Cardio: Palpation: normal PMI Rate: regular rate Rhythm: regular rhythm Heart sounds: S1 normal heart sound present and S2 normal heart sound present Neuro: General: oriented to person, oriented to place and oriented to time Cranial nerves: Yes CN's II-XII intact bilaterally Psych: Appearance: grossly normal Thought process: Normal thought process present Insight: Good insight present (Psych) Judgement: Good judgement present (Psych) Course Course Level of Care: Express Care Visit Vital Signs Vital signs: Vital Signs Temperature 98.8 F 10/01/24 10:07 Pulse Rate 68 10/01/24 10:07 Respiratory Rate 20 10/01/24 10:07 Blood Pressure 122/64 10/01/24 10:07 Pulse Oximetry 100 10/01/24 10:07 Oxygen Delivery Room Air 10/01/24 10:07 Temperature 98.8 F 10/01/24 10:07 Pulse Rate 68 10/01/24 10:07 Respiratory Rate 20 10/01/24 10:07 Blood Pressure 122/64 10/01/24 10:07 Pulse Oximetry 100 10/01/24 10:07 Oxygen Delivery Room Air 10/01/24 10:07 Reviewed MDM - URI/Sore Throat MDM Narrative Medical decision making narrative: Positive rapid strep, start p.o. antibiotics. Patient counseled to take entire course of antibiotics this time. She agrees to do so. She is nontoxic appearing, stable for discharge home. Discharge instructions reviewed with patient, as well as provided in writing per nursing staff. The instructions also include specific and strict return/GO TO THE ER as well as f/u information. All questions have been answered, and the patient deny any further questions with discharge and discharge plan. Some parts of this dictation were generated by voice recognition software and may contain typographical and/or grammatical inaccuracies. Differential Diagnosis Differential diagnosis: Likely upper respiratory infection, otitis media, viral infection and pharyngitis Medical Records Attestation: I reviewed the patient's medical records. Lab Data Attestation: I reviewed the patient's lab results. Labs: Lab Results 10/01/24 Range/Units 10:25 POC Grp A Strep Screen Positive (Negative) Discharge Plan Discharge Clinical Impression: Strep pharyngitis Patient Disposition: Home, Self-Care Condition: Stable Instructions: Antibiotic Form, Pharyngitis (ED) Additional Instructions: Take medications as prescribed. To keep in mind that your antibiotic can decrease the efficacy of your control pills. Use a backup method. Follow with primary care provider. Emergency department for new or worse symptoms Prescriptions: New penicillin V potassium 500 mg tablet 500 mg PO Q12H 10 Days Qty: 20 0RF No Action Aurovela 24 Fe 1 mg-20 mcg (24)/75 mg (4) tablet 1 tablet PO DAILY Follow-up/Referrals: Jaspreet,Tommy Rodriguez APRN [Primary Care Provider] - 2 Weeks Time of Disposition: 10:57
== END 2024-10-01 11:05 | disposition home or self-care (01) ==
PROVIDERS: Emergency Provider Nurse Practitioner Family; PCP Nurse Practitioner Family
DX: J02.0 Streptococcal pharyngitis (principal)
CPT/HCPCS: 87880; 99213; G0463